=== PATIENT | female | born 1945 | race Caucasian/White ===

== ENCOUNTER 2019-08-10 11:49 | Outpatient (CLI) | payer MEDICARE, BC ==
--- NOTE | 2019-08-10 12:27 | RAD ---
LUMBAR SPINE 2 OR 3 VIEWS: DATE: 08/10/2019. TIME: 12:00 AM. CLINICAL INDICATION: Lumbosacral radiculopathy. COMPARISON: Reference made to lumbar spine MRI 06/11/2019. FINDINGS: Height loss related to compression fractures of L1 and L5 are present, grossly stable with regard to degree of height loss with comparing to prior MRI. There is grade 2 spondylolisthesis at L5-S1, without significant translational motion by flexion/exte nsion positioning. Multilevel endplate degenerative change with sclerosis, osteophytosis and disc space narrowing present. There is multilevel facet osteoarthritis. Prominent atherosclerotic vascular calcification is seen at the abdominal aorta. IMPRESSION: 1. Redemonstration of compression fractures of L1 and L5. 2. Grade II spondylolisthesis at L5-S1, without discernible translational motion. Transcribed Date/Time: 08/10/2019 1:34 PM
== END 2019-08-10 11:50 | disposition home or self-care (01) ==
LOC: RAD 11:49
PROVIDERS: ATTEND Neurological Surgery
DX: M54.16 Radiculopathy, lumbar region (principal); M43.17 Spondylolisthesis, lumbosacral region; M48.56XA Collapsed vertebra, not elsewhere classified, lumbar region, initial encounter for fracture
CPT/HCPCS: 72100

== ENCOUNTER 2019-08-26 15:04 | Outpatient (CLI) | payer MEDICARE, BC ==
--- NOTE | 2019-08-26 16:34 | RAD ---
LUMBAR SPINE: 08/26/19 Three views. Lateral views were obtained in the neutral, flexion and extension. COMPARISON: Comparison made to lumbar films 08/10/19. Compression deformity at L1 is unchanged with anterior wedging and loss of anterior height of over 50 %. Mild compression at L5 with anterolisthesis at L5-S1 and loss of disc space is unchanged. Degenera tive spurring and facet hypertrophy again noted. Anterolisthesis at L5-S1 does not significantly santos ge with flexion or extension. IMPRESSION: Degenerative changes of the lumbar spine again noted, stable from 08/10/19. POS: [facility]
== END 2019-08-26 15:05 | disposition home or self-care (01) ==
LOC: TBSIIMAG 15:04
PROVIDERS: ATTEND Neurological Surgery
DX: M54.5 Low back pain (principal); M47.816 Spondylosis without myelopathy or radiculopathy, lumbar region
CPT/HCPCS: 72100

== ENCOUNTER 2019-10-01 05:37 | Inpatient (IN) | payer MEDICARE, BC ==
--- NOTE | 2019-09-29 18:28 | HP ---
HISTORY OF PRESENT ILLNESS: Ms. Grigsby is a 74-year-old female, who reports to our office for evaluation of low back and left leg pain. She has been seen in 2016 for similar symptoms. She states that the pain starts in her left low back, goes down the back of her leg to the top of her foot on the left side. She states that standing or walking, it is worse and with sitting, it is better. She states that she has gotten progressively worse over the last few months. There is a burning, aching pain, but no numbness or tingling. No right-sided symptoms. She states that injections with Dr. Roque had helped in the past, but they are no longer. Physical therapy has not been done recently. She had tramadol and Percocet along with some gabapentin for pain relief. REVIEW OF SYSTEMS: A 10-point review of systems is completed and is negative other than stated in the above HPI. MEDICAL HISTORY: Hypertension, dizziness, osteoarthritis, circulation problems, acid reflux, headaches, alcohol, arthritis, hyperlipidemia, and colitis. 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 FAMILY HISTORY: Father is , diagnosed with no past medical history. Mother is , diagnosed with diabetes. There is a family history of hypertension and diabetes. SOCIAL HISTORY: The patient is a former smoker. Uses alcohol on occasion. Denies any illicit drugs. Drinks 4 to 6 drinks daily. MEDICATIONS: 1. Iron. 2. Probiotics. 3. Vitamin D3. 4. Vitamin B12. 5. Budesonide. 6. Atorvastatin. ALLERGIES: NO KNOWN DRUG ALLERGIES. PHYSICAL EXAMINATION: CONSTITUTIONAL: Well appearing, well nourished, alert. RESPIRATIONS: Normal work of breathing on room air. NEUROLOGIC: Awake, alert, oriented x3. Speech spontaneous and fluent. Normal fund of knowledge. Cranial nerves grossly intact. EXTREMITIES: Lower extremities: 5/5 bilateral strength in hip flexion, knee flexion, knee extension, plantar flexion; 4/5 in dorsiflexion, EHL. L5 left-sided radiculopathy. Negative single leg raise bilaterally. Hip rotation normal bilaterally. Tender to palpate lumbar spine, left SI joint. Deep tendon reflexes diminished bilaterally. Negative Babinski. No clonus. Sensory; increase sensitivity top of left foot. Gait and station, sit to standing normal, use of rolling walker. IMAGING: MRI of lumbar spine, moderate to severe stenosis at L3-L4 and L4-L5, severe at L5-S1 with listhesis. ASSESSMENT AND PLAN: Lumbar spondylolisthesis, lumbar stenosis with neurogenic claudication, lumbar radiculopathy. Dr. Salazar has offered surgery, laminectomy and TLIF at L5-S1. The patient states that she understands the risks of surgery and is willing to proceed. Job ID: [id number]
[2019-09-30 13:10] VITALS: BMI 29.2
[2019-10-01] MEDS ORDERED: Thrombin 5000 UNITS/5 ML VIAL ONE (06:11)
[2019-10-01] MEDS ORDERED: Bupivacaine PF 0.5% 30 ML VIAL ONE (06:11)
[2019-10-01] MEDS ORDERED: Sodium Chloride 0.9% 30 ML ONE (06:11)
[2019-10-01] MEDS ORDERED: Fentanyl 250 MCG/5 ML VIAL ONE (06:32)
[2019-10-01] MEDS ORDERED: Midazolam HCl 2 mg/2 ml Vial ONE (06:33)
[2019-10-01] MEDS ORDERED: HYDROmorphone 2 MG/ML VIAL ONE (06:33)
[2019-10-01 06:45] LABS: #Eosinphils 0.1 thou/uL (0.0-0.7); #Lymphocytes 1.7 thou/uL (1.20-3.40); #Monocytes 0.7 thou/uL (0.11-0.59); #Neutrophils 8.2 thou/uL (1.40-6.50); %Basophils 0.3 % (0.0-1.0); %Eosinophils 0.6 % (0.0-10.0); %Lymphocytes 15.9 % (21.0-51.0); %Monocytes 6.4 % (0.0-10.0); %Neutrophils 76.9 % (42.0-75.0); Hemoglobin 12.4 g/dL (12.0-16.0); Mean Corpuscular HGB CONC 33.4 g/dL (32.0-36.0); Mean Corpuscular Hemoglobin 29.9 pg (27.0-31.0); Mean Corpuscular Volume 89.7 fL (78.0-98.0); Mean Platelet Volume 6.9 fL (7.4-10.4); Platelet Count 326 thou/uL (130-400); RBC Distribution Width 12.2 % (11.5-14.5); Red Blood Cell (RBC) Count 4.15 mill/uL (4.20-5.40); White Blood Cell (WBC) Count 10.7 thou/uL (4.8-10.8)
[2019-10-01 06:52] LABS: PTT 31.6 SEC (22.9-36.1); Prothrombin Time 12.7 SEC (12.0-14.7)
[2019-10-01] MEDS ORDERED: Ropivacaine 0.2% HCl/PF (40 MG/20 ML VIAL) ONE (10:29)
[2019-10-01] MEDS ORDERED: Dexamethasone 20 MG/5 ML VIAL ONE (10:29)
[2019-10-01] MEDS ORDERED: Ropivacaine 0.5% HCl/PF (150 MG/30 ML VIAL) ONE (10:29)
[2019-10-01] MEDS ORDERED: PHENYLEPHRINE-NS 100 MCG/ML 10 ML SYRINGE ONE (10:29)
[2019-10-01] MEDS ORDERED: PROPOFOL 200 MG/20 ML VIAL ONE (10:29)
[2019-10-01] MEDS ORDERED: Rocuronium Bromide 10 MG/ML (10ML VIAL) ONE (10:29)
[2019-10-01] MEDS ORDERED: Labetalol HCl 100 MG/20 ML VIAL ONE (10:29)
[2019-10-01] MEDS ORDERED: Glycopyrrolate 0.2 MG/ML 5 ML SYRINGE ONE (10:29)
[2019-10-01] MEDS ORDERED: SUGAMMADEX SODIUM 200 MG/2 ML VIAL ONE (13:06)
[2019-10-01] MEDS ORDERED: diphenhydrAMINE 25 MG CAP PO PRN (13:09)
[2019-10-01] MEDS ORDERED: Acetaminophen 325 MG TAB PO PRN (13:09)
[2019-10-01] MEDS ORDERED: Morphine 2 MG/ML SYRINGE SLOW IVP PRN (13:09)
[2019-10-01] MEDS ORDERED: Mag-Al 1200 mg/1200 mg/30 ML UDCUP PO PRN (13:09)
[2019-10-01] MEDS ORDERED: diphenhydrAMINE 50 MG/ML VIAL IVP PRN (13:09)
[2019-10-01] MEDS ORDERED: Promethazine HCl 25 MG/ML VIAL IM PRN (13:09)
[2019-10-01] MEDS ORDERED: Acetaminophen/Codeine 30-300mg Tablet PO PRN (13:09)
[2019-10-01] MEDS ORDERED: Promethazine 25 MG TAB PO PRN (13:09)
[2019-10-01] MEDS ORDERED: Ondansetron PF 4 MG/2 ML Vial IVP PRN (13:09)
[2019-10-01] MEDS ORDERED: traMADol HCl 50 MG TAB PO PRN (13:12)
[2019-10-01] MEDS ORDERED: HYDROmorphone 0.5 MG/0.5 ML SYRINGE ONE (13:29)
[2019-10-01] MEDS ORDERED: Fentanyl 100 MCG/2 ML VIAL ONE (13:29)
--- NOTE | 2019-10-01 14:21 | OP ---
DATE OF PROCEDURE: 10/01/2019 PIT FURNACE OPERATOR: Melina Lord PA-C. PREOPERATIVE INDICATION: Treat pain and prevent neurological deterioration. PREOPERATIVE DIAGNOSES: Grade 2 spondylolisthesis at L5-S1 with severe canal and foraminal stenosis, lumbar spinal stenosis at L4-5 and L3-4 with neurogenic claudication. POSTOPERATIVE DIAGNOSES: Grade 2 spondylolisthesis at L5-S1 with severe canal and foraminal stenosis, lumbar spinal stenosis at L4-5 and L3-4 with neurogenic claudication. OPERATIVE PROCEDURE: 1. Decompressive laminectomy, medial facetectomy and foraminotomy, L3-4, L4-5, L5-S1. 2. Transforaminal lumbar interbody arthrodesis at L5-S1 and L4-L5. 3. Pedicle screw and henrik instrumentation, L4-5 and L5-S1. 4. Posterolateral arthrodesis, L4-5, L5-S1. 5. Local morselized autograft, morselized allograft. PREOPERATIVE MEDICATIONS: Ancef 2 g IV. DRAIN NUMBER: One. DRAIN TYPE: 10-[place] Christian. DESCRIPTION OF PROCEDURE: The patient was brought to the operating room. General endotracheal anesthesia was induced. The patient was positioned prone on the Glynn frame with the appropriate padding for the chest and hips. A lateral fluoro radiograph was used to plan our incision. The lumbar skin was sterilely prepped and draped. We opened a midline incision with a 10-blade knife. We controlled bleeding with bipolar and monopolar cautery. We used monopolar cautery to dissect through subcutaneous tissues to the thoracodorsal fascia. We incised the fascia in the midline and reflected the paraspinal muscles off the spinous process and laminae of L3, L4, L5, and S1. Self-retaining retractors were placed and a lateral fluoro radiograph confirmed the levels upon which we were operating. We then removed the spinous processes of L3, L4, L5 and the superior portion of the sacrum. With Kerrison rongeur, we fashioned a laminectomy down the midline. We widened our laminectomy defect by performing medial facetectomies until we were around the lateral aspect of the dura and in line with the medial aspect of the pedicle. We performed wide foraminotomies. At the L5-S1 interspace, L5 nerve roots were compressed between the pedicle of L5 and the superior portion of the sacral bone itself. We then turned our attention to arthrodesis. Because of the steep slope with a grade 2 slip, it would be difficult to stabilize with pedicle screws across the lumbosacral interspace only and we had talked to the patient about this before surgery. We took our arthrodesis up to L4 which was tim because it offered us some amount of reduction. To do so, we took out the disks at L4-L5 and L5-S1 by performing complete facetectomies, using this trajectory and removing all the disk material. We then prepared the endplates for grafting with curettes. We measured the height of the interspace to 8 mm at L5-S1 and 9 mm at L4-L5. The appropriately-sized PEEK intervertebral grafts were brought into the field. The laminectomy bone was carefully morselized on the back table after soft tissue was removed. The morselized bone was added to demineralized bone matrix to form a fusion substrate. We packed the fusion substrate into the center of the PEEK devices and these were advanced into the interspaces under radiographic guidance to the appropriate depth. We turned our attention to pedicle screw instrumentation. Using bony anatomic landmarks, palpation of the medial portion of the pedicles and lateral fluoro radiograph as our guide, we chose entry points for pedicle screws at L4, L5, and S1 bilaterally. We drilled out our entry points. We used a bone awl to advance the trajectories through the pedicles into the vertebral body and then we tapped each trajectory with a threaded tap. We placed 6.5 mm diameter screws. A 360-degree image set was generated confirming adequate positioning of our pedicle screw instrumentation. We then brought the rods down into the screw heads. The rods had to be contoured specifically for the spondylolisthesis. We tightened caps over the rods and using a torque/counter-torque mechanism, we ensured adequate tightness. We applied gentle compression across the interspace. Tightening the L5 caps to the rods allowed some reduction of the spondylolisthesis and improved alignment significantly. The L5 nerve roots looked well decompressed due to the interbodies and the pedicle screw instrumentation. We irrigated copiously with bacitracin irrigation. We decorticated the transverse processes of L4, L5 and the sacral ala bilaterally. Over all the decorticated bone, we left demineralized bone matrix and morselized autograft as our posterolateral fusion substrate. We then tunneled the drain inferiorly through a separate stab incision. We irrigated the center of the wound. We treated the wound with vancomycin powder and we closed in anatomic layers over the drain. This was a clean case, no contamination. Job ID: [id number]
[2019-10-01] MEDS ORDERED: CEFAZOLIN 2 GM in Premix Bag 1 BAG IVPB SCH (15:00)
[2019-10-01] MEDS: Sodium Chloride 0.9% 1,000 ML IV SCH (19:30)
[2019-10-01] MEDS: CEFAZOLIN 2 GM in Premix Bag 1 BAG IVPB SCH (20:11)
[2019-10-01] MEDS: tiZANidine HCl 4 MG TAB PO PRN (20:15)
[2019-10-01] MEDS: Atorvastatin Calcium 40 MG TAB PO SCH (20:16)
[2019-10-02] MEDS: Acetaminophen/Codeine 30-300mg Tablet PO PRN ×4 (02:32→19:49)
[2019-10-02] MEDS: Morphine 4 MG/ML VIAL SLOW IVP PRN (02:53)
[2019-10-02] MEDS: Sodium Chloride 0.9% 1,000 ML IV SCH ×2 (02:54→14:50)
[2019-10-02] MEDS: CEFAZOLIN 2 GM in Premix Bag 1 BAG IVPB SCH ×3 (04:48→19:48)
[2019-10-02] MEDS: traMADol HCl 50 MG TAB PO PRN (04:51)
--- NOTE | 2019-10-02 08:02 | PRG ---
DATE OF SERVICE: 10/02/2019 Ms. Grigsby is one day out from decompression and fusion of lumbar spine for lumbar stenosis, neurogenic claudication, and spondylolisthesis. Her radicular pain in her legs is much better. The back is very sore. Her vitals have been stable and her drain output is higher than her threshold for removal. There are no new neurological deficits in the lower extremities. Our plan on Ms. Grigsby is to work with physical therapy and begin mobilization. When her drain tapers off, it will be removed. We will continue her antibiotics until the drain is out. We will look for inpatient rehabilitation as the next step in her care. If she is surprisingly nimble and safe for activities of daily living by tomorrow or Friday, she can possibly go home, but I anticipate a discharge to rehab. Job ID: [id number] MTDD
[2019-10-02] MEDS: Losartan 25 MG TAB PO SCH (08:35)
[2019-10-02] MEDS: Amlodipine 5 MG TAB PO SCH (08:35)
[2019-10-02] MEDS: Potassium Chloride 20 MEQ TAB PO SCH (08:36)
[2019-10-02] MEDS ORDERED: Losartan 25 MG TAB PO SCH (09:00)
[2019-10-02] MEDS: tiZANidine HCl 4 MG TAB PO PRN ×2 (11:00→16:59)
[2019-10-02] MEDS: Atorvastatin Calcium 40 MG TAB PO SCH (19:48)
[2019-10-03] MEDS: Acetaminophen/Codeine 30-300mg Tablet PO PRN ×4 (00:42→20:13)
[2019-10-03] MEDS: Morphine 4 MG/ML VIAL SLOW IVP PRN (00:52)
[2019-10-03] MEDS: Milk Of Magnesia 30 ML UDCUP PO PRN (01:01)
[2019-10-03] MEDS: CEFAZOLIN 2 GM in Premix Bag 1 BAG IVPB SCH ×3 (04:15→20:13)
[2019-10-03] MEDS: Sodium Chloride 0.9% 1,000 ML IV SCH ×2 (06:07→16:46)
--- NOTE | 2019-10-03 08:20 | PRG ---
DATE OF SERVICE: 10/03/2019 Ms. Grigsby is 2 days out from decompression and fusion of lumbar spine. She is able ambulate to the ayala yesterday. She made it to the doorway, looking out at the nursing station and back to her room. She ambulated to the chair and sat up in her chair for some time. Her drain continues to put out drainage above our threshold for removal. There were 90 mL out in the last 10 hours. Complains of some constipation and bloating. She would like us to prescribe MiraLAX. I do not see any fevers recorded and vital signs look stable to me. Her neurological examination is good. We are going to assist her with bowel movement today. We will leave the drain in until it tapers off the lower threshold for removal. We will continue antibiotics at least until the drain is out and then give one more dose after its removal. Job ID: [id number] MTDD
[2019-10-03] MEDS: traMADol HCl 50 MG TAB PO PRN ×2 (09:00→17:08)
[2019-10-03] MEDS: Losartan 25 MG TAB PO SCH (09:01)
[2019-10-03] MEDS: Amlodipine 5 MG TAB PO SCH (09:01)
[2019-10-03] MEDS: Tamsulosin HCl 0.4 MG CAP PO SCH (09:02)
[2019-10-03] MEDS: Potassium Chloride 20 MEQ TAB PO SCH (09:02)
[2019-10-03] MEDS: tiZANidine HCl 4 MG TAB PO PRN ×2 (11:50→21:27)
[2019-10-03] MEDS ORDERED: Polyethylene Glycol 3350 17 GM Packet PO SCH (14:00)
--- NOTE | 2019-10-03 14:25 | EKG ---
Test Reason : PREOP Blood Pressure : / mmHG Vent. Rate : 071 BPM Atrial Rate : 071 BPM P-R Int : 214 ms QRS Dur : 084 ms QT Int : 384 ms P-R-T Axes : 053 003 056 degrees QTc Int : 417 ms Sinus rhythm with 1st degree A-V block Otherwise normal ECG When compared with ECG of 06-AUG-2015 20:05, Criteria for Septal infarct are no longer Present Confirmed by EILEEN VALLES (2) on 10/03/2019 2:25:03 PM Referred By: WAYLON Confirmed By:EILEEN VALLES
[2019-10-03] MEDS: Atorvastatin Calcium 40 MG TAB PO SCH (20:13)
[2019-10-04] MEDS: Acetaminophen/Codeine 30-300mg Tablet PO PRN ×4 (03:27→16:16)
[2019-10-04] MEDS: CEFAZOLIN 2 GM in Premix Bag 1 BAG IVPB SCH ×3 (03:28→20:19)
[2019-10-04] MEDS ORDERED: Bisacodyl 10 MG SUPP PR SCH (05:15)
--- NOTE | 2019-10-04 05:33 | PRG ---
DATE OF SERVICE: Ms. Grigsby is 3 days out from decompression and fusion of lumbar spine. She is doing well. She is getting in and out of bed and using her walker. She made it to the hallway. She notices that she has not had a bowel movement and wants to work on that. Otherwise, she seems to be improving daily. Ms. Grigsby has no fevers recorded on our vital sign chart and her blood pressures have been fairly stable. I do not find any new neurological deficit. Ms. Grigsby will be good candidate for inpatient rehabilitation. We will try to make arrangements for that to happen as soon as possible. Job ID: [id number] MTDD
[2019-10-04] MEDS: traMADol HCl 50 MG TAB PO PRN ×2 (06:25→20:54)
[2019-10-04] MEDS: tiZANidine HCl 4 MG TAB PO PRN ×2 (06:25→16:24)
[2019-10-04] MEDS: Milk Of Magnesia 30 ML UDCUP PO PRN (06:33)
[2019-10-04] MEDS: Sodium Chloride 0.9% 1,000 ML IV SCH ×2 (06:57→22:43)
[2019-10-04] MEDS: Potassium Chloride 20 MEQ TAB PO SCH (09:18)
[2019-10-04] MEDS: Tamsulosin HCl 0.4 MG CAP PO SCH (09:19)
[2019-10-04] MEDS: Losartan 25 MG TAB PO SCH (09:19)
[2019-10-04] MEDS: Amlodipine 5 MG TAB PO SCH (09:19)
[2019-10-04] MEDS: Polyethylene Glycol 3350 17 GM Packet PO SCH (09:20)
[2019-10-04] MEDS: Atorvastatin Calcium 40 MG TAB PO SCH (20:19)
[2019-10-05] MEDS: Acetaminophen/Codeine 30-300mg Tablet PO PRN ×6 (00:51→20:56)
[2019-10-05] MEDS: CEFAZOLIN 2 GM in Premix Bag 1 BAG IVPB SCH ×3 (04:09→20:56)
[2019-10-05] MEDS: traMADol HCl 50 MG TAB PO PRN (04:09)
[2019-10-05] MEDS: Tamsulosin HCl 0.4 MG CAP PO SCH (08:40)
[2019-10-05] MEDS: Losartan 25 MG TAB PO SCH (08:40)
[2019-10-05] MEDS: Amlodipine 5 MG TAB PO SCH (08:40)
[2019-10-05] MEDS: Potassium Chloride 20 MEQ TAB PO SCH (08:40)
[2019-10-05] MEDS: Polyethylene Glycol 3350 17 GM Packet PO SCH (08:45)
--- NOTE | 2019-10-05 09:05 | PRG ---
DATE OF SERVICE: 10/05/2019 I saw Ms. Grigsby in her hospital room this morning. Her drain remains in place. She complains of some urinary retention and constipation. Suppositories yesterday seemed to help. Vitals have been stable. the neurological exam is quite good. Ms. Grigsby is a good candidate for inpatient rehabilitation. We need to get the drain out. She would like to have a better bladder function before she goes, but I reassured her that the inpatient rehabilitation facility deals with bladder issues frequently and they want to leave indwelling catheter-induced therapy or allow her to void on her own and use straight catheter for any residual, then I will defer to their expertise. If they like us to get Urology consultation here in the hospital before discharge to make recommendations for rehab, then we can do so. Job ID: [id number] MTDD
[2019-10-05] MEDS: Sodium Chloride 0.9% 1,000 ML IV SCH (11:59)
[2019-10-05] MEDS: Atorvastatin Calcium 40 MG TAB PO SCH (20:56)
[2019-10-06] MEDS: Sodium Chloride 0.9% 1,000 ML IV SCH (02:08)
[2019-10-06] MEDS: Acetaminophen/Codeine 30-300mg Tablet PO PRN ×4 (03:27→13:17)
[2019-10-06] MEDS: CEFAZOLIN 2 GM in Premix Bag 1 BAG IVPB SCH (03:39)
[2019-10-06] MEDS: Losartan 25 MG TAB PO SCH (07:45)
[2019-10-06] MEDS: Potassium Chloride 20 MEQ TAB PO SCH (07:45)
[2019-10-06] MEDS: Tamsulosin HCl 0.4 MG CAP PO SCH (07:45)
[2019-10-06] MEDS: Amlodipine 5 MG TAB PO SCH (07:46)
[2019-10-06] MEDS: Polyethylene Glycol 3350 17 GM Packet PO SCH (07:47)
--- NOTE | 2019-10-06 08:56 | PRG ---
DATE OF SERVICE: 10/06/2019 SUBJECTIVE: The patient is a 74-year-old female, who is status post laminectomy and TLIF by Dr. Salazar. Since her surgery, she has been monitored on the Med/Surg floor, where her pain has been well-controlled with p.o. medications, she is tolerating regular diet. She has since had some issues with intermittent urinary retention and constipation. However, this has improved over the last 24 hours. She has not required straight cath overnight. Her PALMA output has also trended downward and was removed last night. The plan is for inpatient rehabilitation and I anticipate that they have indicated that they are ready for her at any point in time. OBJECTIVE: NEUROLOGIC: On exam this morning, the patient is awake, alert, in no acute distress. She has free active range of motion of all extremities. No focal motor weakness. Incision is clean, dry, and intact. ASSESSMENT AND PLAN: We will plan to dismiss the patient to inpatient rehab later today after discussed home care and precautions. The patient to follow up with Dr. Salazar in 2 weeks. Job ID: [id number]
[2019-10-06 11:26] VITALS: BP 123/74; TEMP 98.3
== END 2019-10-06 15:44 | DRG 455 ==
LOC: SURG A 05:37 → SURG B 17:19
PROVIDERS: ADMIT Neurological Surgery; ATTEND Neurological Surgery
PROC: 0SG00AJ Fusion of Lumbar Vertebral Joint with Interbody Fusion Device, Posterior Approach, Anterior Column, Open Approach (ICD-10-PCS; principal; 2019-10-01)
PROC: 0SG0071 Fusion of Lumbar Vertebral Joint with Autologous Tissue Substitute, Posterior Approach, Posterior Column, Open Approach (ICD-10-PCS; 2019-10-01)
PROC: 0SG30AJ Fusion of Lumbosacral Joint with Interbody Fusion Device, Posterior Approach, Anterior Column, Open Approach (ICD-10-PCS; 2019-10-01)
PROC: 0SG3071 Fusion of Lumbosacral Joint with Autologous Tissue Substitute, Posterior Approach, Posterior Column, Open Approach (ICD-10-PCS; 2019-10-01)
PROC: 0SB20ZZ Excision of Lumbar Vertebral Disc, Open Approach (ICD-10-PCS; 2019-10-01)
PROC: 0SB40ZZ Excision of Lumbosacral Disc, Open Approach (ICD-10-PCS; 2019-10-01)
PROC: 01NB0ZZ Release Lumbar Nerve, Open Approach (ICD-10-PCS; 2019-10-01)
PROC: 01NR0ZZ Release Sacral Nerve, Open Approach (ICD-10-PCS; 2019-10-01)
DX: M48.062 Spinal stenosis, lumbar region with neurogenic claudication (principal); M43.16 Spondylolisthesis, lumbar region; M43.17 Spondylolisthesis, lumbosacral region; R33.9 Retention of urine, unspecified; K59.00 Constipation, unspecified; I10 Essential (primary) hypertension; E78.5 Hyperlipidemia, unspecified; K21.9 Gastro-esophageal reflux disease without esophagitis; Z96.652 Presence of left artificial knee joint; M54.16 Radiculopathy, lumbar region; M54.17 Radiculopathy, lumbosacral region; Z87.891 Personal history of nicotine dependence; Z79.899 Other long term (current) drug therapy
CPT/HCPCS: 36415; 76000; 85025; 85610; 85730; 93005; 93010; C1713; C1768; J0131; J0690; J1100; J1170; J2250; J2270; J2405; J2704; J2795; J3010; J3370; J3490; S0020

== ENCOUNTER 2022-05-23 23:15 | Emergency (ER) | payer MEDICARE, BC ==
[2022-05-24 00:13] LABS: #Eosinphils 0.1 thou/uL (0.0-0.7); #Lymphocytes 0.7 thou/uL (1.20-3.40); #Monocytes 1.5 thou/uL (0.11-0.59); #Neutrophils 12.3 thou/uL (1.40-6.50); %Eosinophils 0.4 % (0.0-10.0); %Monocytes 10.2 % (0.0-10.0); %Neutrophils 84.4 % (42.0-75.0); Hemoglobin 12.3 g/dL (12.0-16.0); Mean Corpuscular HGB CONC 33.2 g/dL (32.0-36.0); Mean Corpuscular Hemoglobin 29.6 pg (27.0-31.0); Mean Corpuscular Volume 89.3 fL (78.0-98.0); Platelet Count 309 thou/uL (130-400); RBC Distribution Width 14.4 % (11.5-14.5); Red Blood Cell (RBC) Count 4.15 mill/uL (4.20-5.40); White Blood Cell (WBC) Count 14.6 thou/uL (4.8-10.8)
[2022-05-24 00:33] LABS: ALT (SGPT) 15 U/L (8-55); AST (SGOT) 14 U/L (5-34); Albumin 3.8 g/dL (3.4-4.8); Alkaline Phosphatase 67 U/L (40-110); Anion Gap 17 mmol/L (10-20); BUN (Urea Nitrogen) 23 mg/dL (9.8-20.1); Bilirubin, Total 0.4 mg/dL (0.2-1.2); Calc. Creatinine Clearance 0 mL/min (70-130); Calcium 9.2 mg/dL (7.8-10.44); Carbon Dioxide 19 mmol/L (23-31); Chloride 94 mmol/L (98-107); Estimated GFR 61; Globulin 2.7 g/dL (2.4-3.5); Glucose 101 mg/dL (83-110); Potassium 4.7 mmol/L (3.5-5.1); Protein, Total 6.5 g/dL (5.8-8.1); Sodium 125 mmol/L (136-145)
== END 2022-05-24 04:02 | disposition short-term general hospital (02) ==
LOC: ERS 23:15
DX: R00.0 Tachycardia, unspecified (principal); E87.1 Hypo-osmolality and hyponatremia; K21.9 Gastro-esophageal reflux disease without esophagitis; E78.5 Hyperlipidemia, unspecified; I10 Essential (primary) hypertension; Z79.899 Other long term (current) drug therapy; W19.XXXA Unspecified fall, initial encounter
CPT/HCPCS: 36415; 70450; 71045; 72192; 80053; 84443; 85025; 93005

== ENCOUNTER 2022-07-22 14:13 | Inpatient (IN) | payer MEDICARE, BC ==
[~2022-07-22 14:13] MED LIST: Iopamidol-370 76% 500 ML 1 ML ONE
[2022-07-22 15:04] LABS: #Eosinphils 0.2 thou/uL (0.0-0.7); #Lymphocytes 0.7 thou/uL (1.20-3.40); #Monocytes 0.4 thou/uL (0.11-0.59); #Neutrophils 6.7 thou/uL (1.40-6.50); %Basophils 0.1 % (0.0-1.0); %Lymphocytes 9.2 % (21.0-51.0); %Monocytes 4.4 % (0.0-10.0); %Neutrophils 84.2 % (42.0-75.0); Hemoglobin 8.8 g/dL (12.0-16.0); Mean Corpuscular HGB CONC 33.1 g/dL (32.0-36.0); Mean Corpuscular Hemoglobin 30.6 pg (27.0-31.0); Mean Corpuscular Volume 92.4 fL (78.0-98.0); Mean Platelet Volume 7.1 fL (7.4-10.4); Platelet Count 271 thou/uL (130-400); RBC Distribution Width 14.8 % (11.5-14.5); Red Blood Cell (RBC) Count 2.88 mill/uL (4.20-5.40); White Blood Cell (WBC) Count 7.9 thou/uL (4.8-10.8)
[2022-07-22 15:19] LABS: ALT (SGPT) 14 U/L (8-55); AST (SGOT) 15 U/L (5-34); Albumin 3.5 g/dL (3.4-4.8); Alkaline Phosphatase 69 U/L (40-110); Anion Gap 13 mmol/L (10-20); BUN (Urea Nitrogen) 20 mg/dL (9.8-20.1); Bilirubin, Total 0.2 mg/dL (0.2-1.2); Calc. Creatinine Clearance 0 mL/min (70-130); Carbon Dioxide 20 mmol/L (23-31); Chloride 102 mmol/L (98-107); Estimated GFR 44; Globulin 2.5 g/dL (2.4-3.5); Glucose 113 mg/dL (83-110); Potassium 4.3 mmol/L (3.5-5.1); Sodium 131 mmol/L (136-145)
[2022-07-22] MEDS ORDERED: Aspirin Chewable 81 MG TAB ONE (17:59)
[2022-07-22] MEDS ORDERED: Furosemide 40 MG/4 ML VIAL ONE (17:59)
[2022-07-22 19:31] LABS: Troponin I Less than 0.010 ng/mL (< 0.028)
[2022-07-22] MEDS ORDERED: Ondansetron PF 4 MG/2 ML Vial IVP PRN (20:00)
[2022-07-22] MEDS ORDERED: Ondansetron ODT 4 MG TAB SL PRN (20:00)
[2022-07-22] MEDS ORDERED: Acetaminophen 325 MG TAB PO PRN (20:00)
[2022-07-22 20:33] VITALS: BMI 36.1
[2022-07-22] MEDS ORDERED: Acetaminophen 650 MG Suppository PR PRN (20:54)
[2022-07-22 21:55] LABS: Troponin I Less than 0.010 ng/mL (< 0.028)
[2022-07-23] MEDS ORDERED: Pantoprazole 40 MG VIAL IVP SCH ×2 (02:35→21:00)
[2022-07-23 04:53] LABS: #Lymphocytes 1.4 thou/uL (1.20-3.40); #Monocytes 0.5 thou/uL (0.11-0.59); #Neutrophils 6.2 thou/uL (1.40-6.50); %Basophils 0.4 % (0.0-1.0); %Eosinophils 0.1 % (0.0-10.0); %Lymphocytes 16.7 % (21.0-51.0); %Monocytes 6.1 % (0.0-10.0); %Neutrophils 76.8 % (42.0-75.0); Mean Corpuscular HGB CONC 32.8 g/dL (32.0-36.0); Mean Corpuscular Hemoglobin 29.9 pg (27.0-31.0); Mean Corpuscular Volume 91.2 fL (78.0-98.0); Platelet Count 286 thou/uL (130-400); RBC Distribution Width 14.6 % (11.5-14.5); Red Blood Cell (RBC) Count 2.99 mill/uL (4.20-5.40); White Blood Cell (WBC) Count 8.1 thou/uL (4.8-10.8)
[2022-07-23 05:17] LABS: Anion Gap 16 mmol/L (10-20); BUN (Urea Nitrogen) 23 mg/dL (9.8-20.1); Calc. Creatinine Clearance 37 mL/min (70-130); Calcium 9.3 mg/dL (7.8-10.44); Carbon Dioxide 22 mmol/L (23-31); Chloride 100 mmol/L (98-107); Estimated GFR 34; Glucose 85 mg/dL (83-110); Iron 14 ug/dL (50-170); Iron 15 ug/dL (50-170); Iron Binding Capacity, Total 334 mcg/dL (265-497); Iron Binding Capacity, Total 336 mcg/dL (265-497); Magnesium 1.6 mg/dL (1.6-2.6); Potassium 4.3 mmol/L (3.5-5.1); Sodium 134 mmol/L (136-145)
[2022-07-23] MEDS ORDERED: Enoxaparin Sodium 40 MG/0.4 ML SYRINGE SC SCH (09:00)
[2022-07-23] MEDS ORDERED: methylPREDNISolone Sod Succ 40 MG VIAL IVP SCH (12:45)
[2022-07-23] MEDS ORDERED: Magnesium 2 GM/50 ML(in water) 2 GM in Premix Bag 1 BAG IVPB SCH (12:45)
[2022-07-23] MEDS ORDERED: Furosemide 20 MG/2 ML VIAL SLOW IVP SCH (12:45)
[2022-07-24 01:33] LABS: SARS-CoV-2 NAA Rapid Test Not Detected (NotDetected)
[2022-07-24 04:58] LABS: #Lymphocytes 0.7 thou/uL (1.20-3.40); #Monocytes 0.2 thou/uL (0.11-0.59); #Neutrophils 7.3 thou/uL (1.40-6.50); %Basophils 0.1 % (0.0-1.0); %Lymphocytes 8.5 % (21.0-51.0); %Monocytes 2.1 % (0.0-10.0); %Neutrophils 89.3 % (42.0-75.0); Hemoglobin 8.8 g/dL (12.0-16.0); Mean Corpuscular Hemoglobin 30.3 pg (27.0-31.0); Mean Corpuscular Volume 91.7 fL (78.0-98.0); Mean Platelet Volume 7.4 fL (7.4-10.4); Platelet Count 312 thou/uL (130-400); RBC Distribution Width 14.4 % (11.5-14.5); White Blood Cell (WBC) Count 8.1 thou/uL (4.8-10.8)
[2022-07-24 05:21] LABS: Anion Gap 13 mmol/L (10-20); BUN (Urea Nitrogen) 37 mg/dL (9.8-20.1); Calc. Creatinine Clearance 39 mL/min (70-130); Calcium 10.1 mg/dL (7.8-10.44); Carbon Dioxide 24 mmol/L (23-31); Chloride 96 mmol/L (98-107); Estimated GFR 36; Glucose 158 mg/dL (83-110); Potassium 4.3 mmol/L (3.5-5.1); Sodium 129 mmol/L (136-145)
[2022-07-24] MEDS ORDERED: Ketamine 50 MG/ML (10ML VIAL) ONE (09:57)
[2022-07-24] MEDS ORDERED: PROPOFOL 200 MG/20 ML VIAL ONE (10:32)
[2022-07-24] MEDS ORDERED: Ondansetron HCl/PF 4 MG/2 ML Vial IVP PRN (10:53)
[2022-07-24] MEDS: ALPRAZolam 0.25 MG TAB PO SCH ×2 (12:01→21:37)
[2022-07-24] MEDS: Pantoprazole 40 MG VIAL IVP SCH (21:45)
[2022-07-24] MEDS: methylPREDNISolone Sod Succ/PF 125 MG/2 ML VIAL IVP SCH (21:45)
[2022-07-25] MEDS ORDERED: Docusate 100 MG CAP PO PRN (04:10)
[2022-07-25 04:40] LABS: Hemoglobin 9.1 g/dL (12.0-16.0)
[2022-07-25 07:27] LABS: Hemoglobin 9.1 g/dL (12.0-16.0); Mean Corpuscular HGB CONC 31.8 g/dL (32.0-36.0); Mean Corpuscular Hemoglobin 29.2 pg (27.0-31.0); Mean Corpuscular Volume 91.8 fL (78.0-98.0); Platelet Count 331 thou/uL (130-400); RBC Distribution Width 14.2 % (11.5-14.5); Red Blood Cell (RBC) Count 3.11 mill/uL (4.20-5.40); White Blood Cell (WBC) Count 10.4 thou/uL (4.8-10.8)
[2022-07-25 07:54] LABS: Band 5 % (5-11); Burr Cells SLIGHT = 2-5 cells (100X) (0-1/hpf); Lymphocytes 8 % (21-51); MDiff Complete? YES; Neutrophil 87 % (42-75); Platelet Morphology Comment Appears Adequate; Polychromasia SLIGHT = 2-3 cells (100X) (0-2/hpf)
[2022-07-25 07:59] LABS: Anion Gap 16 mmol/L (10-20); BUN (Urea Nitrogen) 40 mg/dL (9.8-20.1); Calc. Creatinine Clearance 37 mL/min (70-130); Calcium 9.5 mg/dL (7.8-10.44); Carbon Dioxide 20 mmol/L (23-31); Chloride 99 mmol/L (98-107); Estimated GFR 35; Glucose 163 mg/dL (83-110); Potassium 4.6 mmol/L (3.5-5.1); Sodium 130 mmol/L (136-145)
[2022-07-25] MEDS: Benzonatate 100 MG CAP PO PRN ×2 (08:47→21:33)
[2022-07-25] MEDS: Ferrous Sulfate 325 MG TAB PO SCH (08:49)
[2022-07-25] MEDS: Pantoprazole 40 MG VIAL IVP SCH ×2 (08:50→21:33)
[2022-07-25] MEDS: Atorvastatin Calcium 20 MG TAB PO SCH (08:50)
[2022-07-25] MEDS: methylPREDNISolone Sod Succ/PF 125 MG/2 ML VIAL IVP SCH (08:51)
[2022-07-25] MEDS: ALPRAZolam 0.25 MG TAB PO SCH ×2 (08:53→21:33)
[2022-07-25 10:38] LABS: Creatinine, Urine 87.59 mg/dL (47-110)
[2022-07-26 04:28] LABS: #Monocytes 1.2 thou/uL (0.11-0.59); #Neutrophils 16.6 thou/uL (1.40-6.50); %Basophils 0.1 % (0.0-1.0); %Lymphocytes 5.5 % (21.0-51.0); %Monocytes 6.1 % (0.0-10.0); %Neutrophils 88.2 % (42.0-75.0); Hemoglobin 8.6 g/dL (12.0-16.0); Mean Corpuscular Hemoglobin 30.1 pg (27.0-31.0); Mean Corpuscular Volume 91.2 fL (78.0-98.0); Platelet Count 325 thou/uL (130-400); RBC Distribution Width 14.1 % (11.5-14.5); Red Blood Cell (RBC) Count 2.85 mill/uL (4.20-5.40); White Blood Cell (WBC) Count 18.8 thou/uL (4.8-10.8)
[2022-07-26 04:39] LABS: Anion Gap 16 mmol/L (10-20); BUN (Urea Nitrogen) 53 mg/dL (9.8-20.1); Calc. Creatinine Clearance 29 mL/min (70-130); Calcium 8.8 mg/dL (7.8-10.44); Carbon Dioxide 19 mmol/L (23-31); Chloride 94 mmol/L (98-107); Estimated GFR 26; Glucose 143 mg/dL (83-110); Magnesium 1.6 mg/dL (1.6-2.6); Potassium 3.9 mmol/L (3.5-5.1); Sodium 125 mmol/L (136-145)
[2022-07-26] MEDS ORDERED: Sodium Chloride 0.9% 1,000 ML IV SCH (06:45)
[2022-07-26 07:43] LABS: Actual Bicarbonate (HCO3v) 23 mEq/L (22-28); Base Excess -0.8 mEq/L (-2.0 to +3.0); Calcium, Ionized (venous) 1.13 mmol/L (1.16-1.32); Chloride (VBG) 94 mmol/L (98-106); Hemoglobin (Hb) 9.3 g/dL (11.7-16.1); Potassium (VBG) 4.14 mmol/L (3.70-5.30); pH (venous) 7.46 (7.32-7.43)
[2022-07-26] MEDS ORDERED: predniSONE 50 MG TAB PO SCH (08:00)
[2022-07-26] MEDS ORDERED: Mometasone 200 MCG/Formoterol 5 MCG 120 PUFF INHALER INH SCH (08:00)
[2022-07-26] MEDS ORDERED: Magnesium Sulfate In Water 4 GM in Premix Bag 1 BAG IVPB SCH (08:15)
[2022-07-26 08:16] LABS: Troponin I 0.012 ng/mL (< 0.028)
[2022-07-26] MEDS: Sodium Chloride 0.9% 1,000 ML IV SCH (08:58)
[2022-07-26] MEDS: Ferrous Sulfate 325 MG TAB PO SCH (08:59)
[2022-07-26] MEDS: Atorvastatin Calcium 20 MG TAB PO SCH (08:59)
[2022-07-26] MEDS: Pantoprazole 40 MG VIAL IVP SCH ×2 (09:00→20:34)
[2022-07-26] MEDS: methylPREDNISolone Sod Succ 40 MG VIAL IVP SCH ×2 (09:02→20:34)
[2022-07-26] MEDS: ALPRAZolam 0.25 MG TAB PO SCH ×2 (09:25→20:34)
[2022-07-26 12:57] LABS: Creatinine, Urine 79.39 mg/dL (47-110); Sodium, Urine Less than 20 mmol/L (Not Available); Urea Nitrogen, Random Urine 631 mg/dl
[2022-07-26] MEDS: Mometasone 200 MCG/Formoterol 5 MCG 120 PUFF INHALER INH SCH (18:52)
[2022-07-26] MEDS: Sulfameth/Trimethoprim DS 800-160mg TAB PO SCH (20:35)
[2022-07-27] MEDS: Sodium Chloride 0.9% 1,000 ML IV SCH (04:39)
[2022-07-27 05:08] LABS: #Monocytes 0.5 thou/uL (0.11-0.59); #Neutrophils 12.8 thou/uL (1.40-6.50); %Basophils 0.3 % (0.0-1.0); %Eosinophils 0.1 % (0.0-10.0); %Lymphocytes 7.2 % (21.0-51.0); %Monocytes 3.6 % (0.0-10.0); %Neutrophils 88.8 % (42.0-75.0); Mean Corpuscular HGB CONC 32.5 g/dL (32.0-36.0); Mean Corpuscular Hemoglobin 29.4 pg (27.0-31.0); Mean Corpuscular Volume 90.6 fL (78.0-98.0); Mean Platelet Volume 7.2 fL (7.4-10.4); Platelet Count 343 thou/uL (130-400); RBC Distribution Width 14.2 % (11.5-14.5); Red Blood Cell (RBC) Count 2.73 mill/uL (4.20-5.40); White Blood Cell (WBC) Count 14.4 thou/uL (4.8-10.8)
[2022-07-27 05:35] LABS: Anion Gap 17 mmol/L (10-20); BUN (Urea Nitrogen) 56 mg/dL (9.8-20.1); Calc. Creatinine Clearance 28 mL/min (70-130); Calcium 8.7 mg/dL (7.8-10.44); Carbon Dioxide 19 mmol/L (23-31); Chloride 96 mmol/L (98-107); Estimated GFR 24; Glucose 149 mg/dL (83-110); Magnesium 3.4 mg/dL (1.6-2.6); Potassium 4.5 mmol/L (3.5-5.1); Sodium 127 mmol/L (136-145)
[2022-07-27] MEDS: Mometasone 200 MCG/Formoterol 5 MCG 120 PUFF INHALER INH SCH ×2 (07:03→19:06)
[2022-07-27] MEDS: Atorvastatin Calcium 20 MG TAB PO SCH (09:23)
[2022-07-27] MEDS: ALPRAZolam 0.25 MG TAB PO SCH ×2 (09:23→20:34)
[2022-07-27] MEDS: Ferrous Sulfate 325 MG TAB PO SCH (09:23)
[2022-07-27] MEDS: Pantoprazole 40 MG VIAL IVP SCH ×2 (09:24→20:34)
[2022-07-27] MEDS: Sulfameth/Trimethoprim DS 800-160mg TAB PO SCH (09:24)
[2022-07-27] MEDS: methylPREDNISolone Sod Succ 40 MG VIAL IVP SCH ×2 (09:25→20:34)
[2022-07-27] MEDS: Heparin 5,000 UNITS/ML VIAL SC SCH (20:34)
[2022-07-28 04:41] LABS: Hemoglobin 7.7 g/dL (12.0-16.0); Mean Corpuscular HGB CONC 32.7 g/dL (32.0-36.0); Mean Corpuscular Hemoglobin 29.6 pg (27.0-31.0); Mean Corpuscular Volume 90.6 fL (78.0-98.0); Mean Platelet Volume 7.1 fL (7.4-10.4); Platelet Count 327 thou/uL (130-400); RBC Distribution Width 14.1 % (11.5-14.5); Red Blood Cell (RBC) Count 2.61 mill/uL (4.20-5.40)
[2022-07-28 04:45] LABS: Anion Gap 15 mmol/L (10-20); BUN (Urea Nitrogen) 58 mg/dL (9.8-20.1); Calc. Creatinine Clearance 27 mL/min (70-130); Calcium 8.5 mg/dL (7.8-10.44); Carbon Dioxide 21 mmol/L (23-31); Chloride 97 mmol/L (98-107); Estimated GFR 23; Glucose 145 mg/dL (83-110); Magnesium 3.1 mg/dL (1.6-2.6); Potassium 4.6 mmol/L (3.5-5.1); Sodium 128 mmol/L (136-145)
[2022-07-28 05:56] LABS: Band 6 % (5-11); Lymphocytes 7 % (21-51); MDiff Complete? YES; Metamyelocyte 1 % (0-0); Monocytes 1 % (0-10); Neutrophil 85 % (42-75)
[2022-07-28] MEDS: Mometasone 200 MCG/Formoterol 5 MCG 120 PUFF INHALER INH SCH ×2 (07:09→19:17)
[2022-07-28] MEDS: Atorvastatin Calcium 20 MG TAB PO SCH (09:22)
[2022-07-28] MEDS: Ferrous Sulfate 325 MG TAB PO SCH (09:22)
[2022-07-28] MEDS: Sulfameth/Trimethoprim DS 800-160mg TAB PO SCH (09:23)
[2022-07-28] MEDS: Heparin 5,000 UNITS/ML VIAL SC SCH ×2 (09:23→21:52)
[2022-07-28] MEDS: Pantoprazole 40 MG VIAL IVP SCH ×2 (09:23→21:52)
[2022-07-28] MEDS: methylPREDNISolone Sod Succ 40 MG VIAL IVP SCH (09:24)
[2022-07-28] MEDS: ALPRAZolam 0.25 MG TAB PO SCH ×2 (09:25→21:52)
[2022-07-28] MEDS ORDERED: methylPREDNISolone Sod Succ 40 MG VIAL IVP SCH (10:00)
[2022-07-28] MEDS: Benzonatate 100 MG CAP PO PRN (14:00)
[2022-07-28] MEDS ORDERED: Acetaminophen 325 MG TAB PO PRN (14:07)
[2022-07-29 04:55] LABS: Hemoglobin 7.5 g/dL (12.0-16.0); Mean Corpuscular HGB CONC 31.9 g/dL (32.0-36.0); Mean Corpuscular Hemoglobin 28.7 pg (27.0-31.0); Mean Corpuscular Volume 90.2 fL (78.0-98.0); Mean Platelet Volume 6.8 fL (7.4-10.4); Platelet Count 347 thou/uL (130-400); RBC Distribution Width 14.1 % (11.5-14.5); Red Blood Cell (RBC) Count 2.61 mill/uL (4.20-5.40); White Blood Cell (WBC) Count 15.4 thou/uL (4.8-10.8)
[2022-07-29 05:01] LABS: Anion Gap 13 mmol/L (10-20); BUN (Urea Nitrogen) 55 mg/dL (9.8-20.1); Calc. Creatinine Clearance 30 mL/min (70-130); Calcium 8.3 mg/dL (7.8-10.44); Carbon Dioxide 21 mmol/L (23-31); Chloride 98 mmol/L (98-107); Estimated GFR 26; Glucose 143 mg/dL (83-110); Magnesium 2.9 mg/dL (1.6-2.6); Potassium 4.6 mmol/L (3.5-5.1); Sodium 127 mmol/L (136-145)
[2022-07-29 05:26] LABS: Band 1 % (5-11); Burr Cells SLIGHT = 2-5 cells (100X) (0-1/hpf); Hypochromia SLIGHT = 6-15 cells (100X) (0-5/hpf); Lymphocytes 9 % (21-51); MDiff Complete? YES; Metamyelocyte 2 % (0-0); Monocytes 3 % (0-10); Neutrophil 85 % (42-75); Nucleated RBC 3 % (0); Platelet Morphology Comment Appears Adequate; Polychromasia SLIGHT = 2-3 cells (100X) (0-2/hpf)
[2022-07-29] MEDS: Mometasone 200 MCG/Formoterol 5 MCG 120 PUFF INHALER INH SCH ×2 (07:11→18:27)
[2022-07-29] MEDS ORDERED: methylPREDNISolone Sod Succ 40 MG VIAL IVP SCH (09:00)
[2022-07-29] MEDS: Ferrous Sulfate 325 MG TAB PO SCH (09:55)
[2022-07-29] MEDS: ALPRAZolam 0.25 MG TAB PO SCH ×2 (09:55→22:20)
[2022-07-29] MEDS: Sulfameth/Trimethoprim DS 800-160mg TAB PO SCH (09:57)
[2022-07-29] MEDS: Atorvastatin Calcium 20 MG TAB PO SCH (09:58)
[2022-07-29] MEDS: Heparin 5,000 UNITS/ML VIAL SC SCH ×2 (09:59→22:17)
[2022-07-29] MEDS: Pantoprazole 40 MG VIAL IVP SCH (11:56)
[2022-07-30 05:25] LABS: Hemoglobin 7.9 g/dL (12.0-16.0); Mean Corpuscular HGB CONC 32.2 g/dL (32.0-36.0); Mean Corpuscular Hemoglobin 29.1 pg (27.0-31.0); Mean Corpuscular Volume 90.3 fL (78.0-98.0); Mean Platelet Volume 6.8 fL (7.4-10.4); Platelet Count 385 thou/uL (130-400); RBC Distribution Width 14.1 % (11.5-14.5); White Blood Cell (WBC) Count 18.4 thou/uL (4.8-10.8)
[2022-07-30 05:30] LABS: Anion Gap 14 mmol/L (10-20); BUN (Urea Nitrogen) 53 mg/dL (9.8-20.1); Calc. Creatinine Clearance 32 mL/min (70-130); Calcium 8.3 mg/dL (7.8-10.44); Carbon Dioxide 21 mmol/L (23-31); Chloride 97 mmol/L (98-107); Estimated GFR 28; Glucose 85 mg/dL (83-110); Magnesium 2.8 mg/dL (1.6-2.6); Potassium 4.6 mmol/L (3.5-5.1); Sodium 127 mmol/L (136-145)
[2022-07-30 05:47] LABS: Band 5 % (5-11); Lymphocytes 15 % (21-51); MDiff Complete? YES; Metamyelocyte 2 % (0-0); Monocytes 2 % (0-10); Myelocyte 2 % (0-0); Neutrophil 74 % (42-75); Nucleated RBC 2 % (0); Platelet Morphology Comment Appears Adequate; RBC Morphology Normal
[2022-07-30] MEDS: Mometasone 200 MCG/Formoterol 5 MCG 120 PUFF INHALER INH SCH ×2 (07:26→19:05)
[2022-07-30] MEDS: Atorvastatin Calcium 20 MG TAB PO SCH (08:19)
[2022-07-30] MEDS: predniSONE 20 MG TAB PO SCH (08:19)
[2022-07-30] MEDS: Heparin 5,000 UNITS/ML VIAL SC SCH ×2 (08:19→21:19)
[2022-07-30] MEDS: Docusate 100 MG CAP PO SCH ×2 (08:20→21:19)
[2022-07-30] MEDS: Ferrous Sulfate 325 MG TAB PO SCH (08:20)
[2022-07-30] MEDS: ALPRAZolam 0.25 MG TAB PO SCH ×2 (08:20→21:19)
[2022-07-30] MEDS: Sulfameth/Trimethoprim DS 800-160mg TAB PO SCH (08:20)
[2022-07-31 05:40] LABS: Anion Gap 11 mmol/L (10-20); BUN (Urea Nitrogen) 41 mg/dL (9.8-20.1); Calc. Creatinine Clearance 40 mL/min (70-130); Calcium 8.4 mg/dL (7.8-10.44); Carbon Dioxide 24 mmol/L (23-31); Chloride 96 mmol/L (98-107); Estimated GFR 37; Glucose 89 mg/dL (83-110); Magnesium 2.5 mg/dL (1.6-2.6); Potassium 5.1 mmol/L (3.5-5.1); Sodium 126 mmol/L (136-145)
[2022-07-31 05:47] LABS: Anisocytosis SLIGHT = 6-15 cells (100X) (0-5/hpf); Band 12 % (5-11); Hemoglobin 8.1 g/dL (12.0-16.0); Lymphocytes 14 % (21-51); MDiff Complete? YES; Mean Corpuscular Volume 90.6 fL (78.0-98.0); Mean Platelet Volume 6.7 fL (7.4-10.4); Monocytes 5 % (0-10); Neutrophil 69 % (42-75); Platelet Count 374 thou/uL (130-400); RBC Distribution Width 14.3 % (11.5-14.5); Red Blood Cell (RBC) Count 2.79 mill/uL (4.20-5.40); White Blood Cell (WBC) Count 17.7 thou/uL (4.8-10.8)
[2022-07-31] MEDS: Mometasone 200 MCG/Formoterol 5 MCG 120 PUFF INHALER INH SCH ×2 (07:09→18:34)
[2022-07-31] MEDS: Heparin 5,000 UNITS/ML VIAL SC SCH ×2 (09:58→20:38)
[2022-07-31] MEDS: predniSONE 20 MG TAB PO SCH (09:58)
[2022-07-31] MEDS: Docusate 100 MG CAP PO SCH ×2 (09:58→20:45)
[2022-07-31] MEDS: ALPRAZolam 0.25 MG TAB PO SCH ×2 (09:58→20:40)
[2022-07-31] MEDS: Ferrous Sulfate 325 MG TAB PO SCH (09:59)
[2022-07-31] MEDS: Sulfameth/Trimethoprim DS 800-160mg TAB PO SCH (09:59)
[2022-07-31] MEDS: Atorvastatin Calcium 20 MG TAB PO SCH (09:59)
[2022-08-01 04:28] LABS: #Eosinphils 0.1 thou/uL (0.0-0.7); #Lymphocytes 1.7 thou/uL (1.20-3.40); #Monocytes 0.8 thou/uL (0.11-0.59); #Neutrophils 14.2 thou/uL (1.40-6.50); %Basophils 0.1 % (0.0-1.0); %Eosinophils 0.5 % (0.0-10.0); %Lymphocytes 10.3 % (21.0-51.0); %Monocytes 4.7 % (0.0-10.0); %Neutrophils 84.4 % (42.0-75.0); Hemoglobin 7.8 g/dL (12.0-16.0); Mean Corpuscular HGB CONC 32.4 g/dL (32.0-36.0); Mean Corpuscular Hemoglobin 29.5 pg (27.0-31.0); Mean Platelet Volume 6.7 fL (7.4-10.4); Platelet Count 382 thou/uL (130-400); RBC Distribution Width 14.5 % (11.5-14.5); Red Blood Cell (RBC) Count 2.63 mill/uL (4.20-5.40); White Blood Cell (WBC) Count 16.8 thou/uL (4.8-10.8)
[2022-08-01 04:32] LABS: Anion Gap 12 mmol/L (10-20); BUN (Urea Nitrogen) 28 mg/dL (9.8-20.1); Calc. Creatinine Clearance 52 mL/min (70-130); Calcium 8.2 mg/dL (7.8-10.44); Carbon Dioxide 22 mmol/L (23-31); Chloride 100 mmol/L (98-107); Estimated GFR 50; Glucose 112 mg/dL (83-110); Magnesium 2.1 mg/dL (1.6-2.6); Potassium 4.7 mmol/L (3.5-5.1); Sodium 129 mmol/L (136-145)
[2022-08-01] MEDS: Mometasone 200 MCG/Formoterol 5 MCG 120 PUFF INHALER INH SCH (07:10)
[2022-08-01] MEDS: Atorvastatin Calcium 20 MG TAB PO SCH (09:34)
[2022-08-01] MEDS: Heparin 5,000 UNITS/ML VIAL SC SCH (09:34)
[2022-08-01] MEDS: Ferrous Sulfate 325 MG TAB PO SCH (09:34)
[2022-08-01] MEDS: Sulfameth/Trimethoprim DS 800-160mg TAB PO SCH (09:34)
[2022-08-01] MEDS: predniSONE 20 MG TAB PO SCH (09:34)
[2022-08-01] MEDS: Docusate 100 MG CAP PO SCH (09:34)
[2022-08-01] MEDS: ALPRAZolam 0.25 MG TAB PO SCH (09:35)
[2022-08-01 13:26] VITALS: BP 125/58; TEMP 98.2
== END 2022-08-01 16:15 | disposition swing bed (61) | DRG 189 ==
LOC: ERS 14:13 → 2NO 18:21
PROVIDERS: ADMIT Student in an Organized Health Care Education/Training Program; ATTEND Student in an Organized Health Care Education/Training Program
PROC: 0DB98ZX Excision of Duodenum, Via Natural or Artificial Opening Endoscopic, Diagnostic (ICD-10-PCS; principal; 2022-07-24)
PROC: 0DB78ZX Excision of Stomach, Pylorus, Via Natural or Artificial Opening Endoscopic, Diagnostic (ICD-10-PCS; 2022-07-24)
PROC: 0DB28ZX Excision of Middle Esophagus, Via Natural or Artificial Opening Endoscopic, Diagnostic (ICD-10-PCS; 2022-07-24)
PROC: 0DB48ZX Excision of Esophagogastric Junction, Via Natural or Artificial Opening Endoscopic, Diagnostic (ICD-10-PCS; 2022-07-24)
DX: J96.01 Acute respiratory failure with hypoxia (principal); Z66 Do not resuscitate; Z51.5 Encounter for palliative care; Z20.822 Contact with and (suspected) exposure to COVID-19; E22.2 Syndrome of inappropriate secretion of antidiuretic hormone; I13.0 Hypertensive heart and chronic kidney disease with heart failure and stage 1 through stage 4 chronic kidney disease, or unspecified chronic kidney disease; I47.1 Supraventricular tachycardia; N17.9 Acute kidney failure, unspecified; E87.2 Acidosis; N18.4 Chronic kidney disease, stage 4 (severe); I50.32 Chronic diastolic (congestive) heart failure; K22.10 Ulcer of esophagus without bleeding; K21.9 Gastro-esophageal reflux disease without esophagitis; Z96.652 Presence of left artificial knee joint; K44.9 Diaphragmatic hernia without obstruction or gangrene; D50.9 Iron deficiency anemia, unspecified; K52.832 Lymphocytic colitis; I35.0 Nonrheumatic aortic (valve) stenosis; K21.00 Gastro-esophageal reflux disease with esophagitis, without bleeding; K25.9 Gastric ulcer, unspecified as acute or chronic, without hemorrhage or perforation; I49.1 Atrial premature depolarization; J44.9 Chronic obstructive pulmonary disease, unspecified; D63.1 Anemia in chronic kidney disease; F41.9 Anxiety disorder, unspecified; I48.91 Unspecified atrial fibrillation; Z87.440 Personal history of urinary (tract) infections; Z79.899 Other long term (current) drug therapy; Z79.52 Long term (current) use of systemic steroids; Z79.82 Long term (current) use of aspirin; Z98.890 Other specified postprocedural states; Z91.81 History of falling; Z79.2 Long term (current) use of antibiotics; Z98.1 Arthrodesis status
CPT/HCPCS: 36415; 71045; 71275; 76770; 80048; 80053; 82570; 82728; 82805; 83540; 83550; 83605; 83735; 83880; 83930; 83935; 84300; 84443; 84484; 84540; 85014; 85018; 85025; 85379; 86850; 86900; 86901; 87040; 87081; 87811; 88305; 88312; 88313; 88342; 93005; 93010; 93306; 94640; 96374; C9113; J1644; J1940; J2704; J2920; J2930; J3475; J7050; J7512; J7620; Q9967; U0002

== ENCOUNTER 2022-08-12 23:30 | Inpatient (IN) | payer MEDICARE, BC ==
[2022-08-13 00:28] LABS: Actual Bicarbonate (HCO3a) 25.2 mEq/L (22-28); Analyzer IN Cardio ER; Calcium, Ionized (arterial) 1.11 mmol/L (1.12-1.30); Carboxyhemoglobin (COHb) 0.3 gm% (0.0-3.0); Hemoglobin (Hb) 9.8 g/dL (12.0-16.0); O2 Tension (PaO2), arterial 61.3 mmHg (> 70.0); pH, Arterial 7.49 (7.35-7.45)
[2022-08-13 00:29] LABS: Puncture Site LRA
[2022-08-13 00:34] LABS: Mean Corpuscular HGB CONC 31.9 g/dL (32.0-36.0); Mean Corpuscular Hemoglobin 29.3 pg (27.0-31.0); Mean Corpuscular Volume 92.1 fL (78.0-98.0); Mean Platelet Volume 9.1 fL (7.4-10.4); Platelet Count 145 thou/uL (130-400); RBC Distribution Width 16.9 % (11.5-14.5); Red Blood Cell (RBC) Count 3.07 mill/uL (4.20-5.40); White Blood Cell (WBC) Count 10.2 thou/uL (4.8-10.8)
[2022-08-13 00:51] LABS: ALT (SGPT) 30 U/L (8-55); AST (SGOT) 29 U/L (5-34); Albumin 3.3 g/dL (3.4-4.8); Alkaline Phosphatase 41 U/L (40-110); Anion Gap 16 mmol/L (10-20); Anisocytosis SLIGHT = 6-15 cells (100X) (0-5/hpf); BUN (Urea Nitrogen) 24 mg/dL (9.8-20.1); Band 23 % (5-11); Bilirubin, Total 0.5 mg/dL (0.2-1.2); Burr Cells SLIGHT = 2-5 cells (100X) (0-1/hpf); Calc. Creatinine Clearance 0 mL/min (70-130); Calcium 8.3 mg/dL (7.8-10.44); Carbon Dioxide 23 mmol/L (23-31); Chloride 97 mmol/L (98-107); Estimated GFR 64; Globulin 2.5 g/dL (2.4-3.5); Glucose 161 mg/dL (83-110); Hypochromia SLIGHT = 6-15 cells (100X) (0-5/hpf); Lymphocytes 4 % (21-51); MDiff Complete? YES; Monocytes 1 % (0-10); Neutrophil 72 % (42-75); Nucleated RBC 1 % (0); Platelet Morphology Comment Appears Adequate; Polychromasia SLIGHT = 2-3 cells (100X) (0-2/hpf); Potassium 4.2 mmol/L (3.5-5.1); Protein, Total 5.8 g/dL (5.8-8.1); Sodium 132 mmol/L (136-145); Tear Drops SLIGHT = 2-5 cells (100X) (0-1/hpf)
[2022-08-13] MEDS ORDERED: hydrALAZINE 20 MG/ML VIAL SLOW IVP PRN (01:54)
[2022-08-13] MEDS ORDERED: Morphine 2 MG/ML VIAL SLOW IVP PRN (01:54)
[2022-08-13] MEDS ORDERED: Acetaminophen 325 MG TAB PO PRN (02:00)
[2022-08-13] MEDS ORDERED: Ondansetron PF 4 MG/2 ML Vial IVP PRN (02:00)
[2022-08-13] MEDS ORDERED: cefTRIAXone\\ROCEPHIN 1 GM in Sodium Chloride 0.9% 100 ML IVPB SCH (02:00)
[2022-08-13] MEDS ORDERED: Furosemide 40 MG/4 ML VIAL SLOW IVP SCH (02:00)
[2022-08-13] MEDS ORDERED: Ondansetron ODT 4 MG TAB SL PRN (02:00)
[2022-08-13] MEDS ORDERED: Metoprolol Tartrate 50 MG TAB PO SCH ×2 (02:15→02:45)
[2022-08-13 04:48] VITALS: BMI 37.3
[2022-08-13 05:05] LABS: #Lymphocytes 0.3 thou/uL (1.20-3.40); #Monocytes 0.3 thou/uL (0.11-0.59); #Neutrophils 9.8 thou/uL (1.40-6.50); %Basophils 0.4 % (0.0-1.0); %Lymphocytes 3.2 % (21.0-51.0); %Monocytes 2.4 % (0.0-10.0); %Neutrophils 94.1 % (42.0-75.0); Hemoglobin 8.7 g/dL (12.0-16.0); Mean Corpuscular HGB CONC 31.9 g/dL (32.0-36.0); Mean Corpuscular Hemoglobin 29.1 pg (27.0-31.0); Mean Corpuscular Volume 91.2 fL (78.0-98.0); Mean Platelet Volume 7.5 fL (7.4-10.4); Platelet Count 202 thou/uL (130-400); RBC Distribution Width 16.7 % (11.5-14.5); Red Blood Cell (RBC) Count 2.99 mill/uL (4.20-5.40); White Blood Cell (WBC) Count 10.4 thou/uL (4.8-10.8)
[2022-08-13 05:18] LABS: ALT (SGPT) 27 U/L (8-55); AST (SGOT) 10 U/L (5-34); Albumin 3.3 g/dL (3.4-4.8); Alkaline Phosphatase 42 U/L (40-110); Anion Gap 15 mmol/L (10-20); BUN (Urea Nitrogen) 22 mg/dL (9.8-20.1); Bilirubin, Total 0.7 mg/dL (0.2-1.2); Calc. Creatinine Clearance 67 mL/min (70-130); Calcium 8.5 mg/dL (7.8-10.44); Carbon Dioxide 26 mmol/L (23-31); Chloride 95 mmol/L (98-107); Estimated GFR 67; Globulin 1.9 g/dL (2.4-3.5); Glucose 154 mg/dL (83-110); Magnesium 1.9 mg/dL (1.6-2.6); Potassium 3.4 mmol/L (3.5-5.1); Protein, Total 5.2 g/dL (5.8-8.1); Sodium 133 mmol/L (136-145)
[2022-08-13 05:23] LABS: Troponin I Less than 0.010 ng/mL (< 0.028)
[2022-08-13] MEDS ORDERED: methylPREDNISolone Sod Succ 40 MG VIAL IVP SCH (06:00)
[2022-08-13 07:54] LABS: Troponin I Less than 0.010 ng/mL (< 0.028)
[2022-08-13] MEDS: Atorvastatin Calcium 20 MG TAB PO SCH (09:49)
[2022-08-13] MEDS: ALPRAZolam 0.25 MG TAB PO SCH ×2 (09:49→20:46)
[2022-08-13] MEDS: Aspirin 81 mg Enteric Coated Tablet PO SCH (09:49)
[2022-08-13] MEDS: Enoxaparin Sodium 40 MG/0.4 ML SYRINGE SC SCH (09:49)
[2022-08-13] MEDS: Metoprolol Tartrate 50 MG TAB PO SCH ×2 (09:52→20:04)
[2022-08-13] MEDS: Ipratropium/Albuterol Sulfate 4 GM AER IH SCH ×3 (10:14→18:33)
[2022-08-13] MEDS ORDERED: Pharmacy to Dose REMDESIVIR PO PRN (11:38)
[2022-08-13] MEDS ORDERED: Benzonatate 100 MG CAP PO PRN (11:41)
[2022-08-13] MEDS: Furosemide 40 MG/4 ML VIAL SLOW IVP SCH ×2 (12:58→20:46)
[2022-08-13] MEDS ORDERED: Albuterol 200 PUFF (6.7GM INHALER) INH SCH (13:00)
[2022-08-13] MEDS: Vancomycin 1.5 GRAM/300 ML BAG 1.5 GM in Premix Bag 1 BAG IVPB SCH (13:14)
[2022-08-13] MEDS ORDERED: Iopamidol-370 76% 500 ML 1 ML ONE (14:02)
[2022-08-13 14:07] LABS: Bacteria/HPF None Seen HPF (None Seen); Bilirubin Negative (Negative); Blood, Urine Negative (Negative); Clarity Clear (Clear); Glucose, Urine (Dipstick) Normal (Negative); Ketone, Urine Negative (Negative); Leukocyte 75 Leu/uL (Negative); Mucous/LPF Rare LPF (<2+); Nitrite Negative (Negative); Protein, Urine (Dipstick) Negative (Neg-Trace); RBC/HPF 0-3 HPF (0-3); Specific Gravity, Urine 1.017 (1.002-1.036); Squamous Epithelial 0-3 HPF (0-3); Urobilinogen Normal mg/dL (Less than 2)
[2022-08-13 14:10] LABS: Urine Culture Reflex Yes Yes
[2022-08-13] MEDS: Cefepime 2 GM in Sodium Chloride 0.9% 100 ML IVPB SCH ×2 (14:40→20:46)
[2022-08-13] MEDS: Dexamethasone 10 MG/ML VIAL SLOW IVP SCH (20:46)
[2022-08-13] MEDS: guaiFENesin/DM ER PO SCH (20:47)
[2022-08-13] MEDS ORDERED: REMDESIVIR 200 MG in Sodium Chloride 0.9% 250 ML 210 ML IV SCH (21:00)
[2022-08-13] MEDS ORDERED: REMDESIVIR 100 MG in Sodium Chloride 0.9% 250 ML 230 ML IV SCH (21:00)
[2022-08-14] MEDS: Ipratropium/Albuterol Sulfate 4 GM AER IH SCH ×4 (02:16→20:45)
[2022-08-14] MEDS: Furosemide 40 MG/4 ML VIAL SLOW IVP SCH ×3 (05:38→20:26)
[2022-08-14] MEDS: Cefepime 2 GM in Sodium Chloride 0.9% 100 ML IVPB SCH ×3 (05:38→20:28)
[2022-08-14 07:27] LABS: ALT (SGPT) 25 U/L (8-55); AST (SGOT) 13 U/L (5-34); Albumin 3.4 g/dL (3.4-4.8); Alkaline Phosphatase 45 U/L (40-110); Bilirubin, Direct 0.2 mg/dL (0.1-0.3); Bilirubin, Total 0.4 mg/dL (0.2-1.2)
[2022-08-14] MEDS: Aspirin 81 mg Enteric Coated Tablet PO SCH (10:16)
[2022-08-14] MEDS: Dexamethasone 10 MG/ML VIAL SLOW IVP SCH ×2 (10:16→20:26)
[2022-08-14] MEDS: Atorvastatin Calcium 20 MG TAB PO SCH (10:16)
[2022-08-14] MEDS: ALPRAZolam 0.25 MG TAB PO SCH ×2 (10:16→20:26)
[2022-08-14] MEDS: Enoxaparin Sodium 40 MG/0.4 ML SYRINGE SC SCH (10:17)
[2022-08-14] MEDS: guaiFENesin/DM ER PO SCH ×2 (10:18→20:25)
[2022-08-14] MEDS: Vancomycin 1.5 GRAM/300 ML BAG 1.5 GM in Premix Bag 1 BAG IVPB SCH (12:41)
[2022-08-14] MEDS: REMDESIVIR 100 MG in Sodium Chloride 0.9% 250 ML 230 ML IV SCH (20:25)
[2022-08-15] MEDS: Ipratropium/Albuterol Sulfate 4 GM AER IH SCH ×4 (01:46→18:15)
[2022-08-15 04:15] LABS: ALT (SGPT) 23 U/L (8-55); AST (SGOT) 14 U/L (5-34); Albumin 3.4 g/dL (3.4-4.8); Alkaline Phosphatase 43 U/L (40-110); Bilirubin, Direct 0.2 mg/dL (0.1-0.3); Bilirubin, Total 0.4 mg/dL (0.2-1.2); Protein, Total 6.1 g/dL (5.8-8.1)
[2022-08-15] MEDS: Cefepime 2 GM in Sodium Chloride 0.9% 100 ML IVPB SCH ×3 (06:03→20:53)
[2022-08-15] MEDS: Furosemide 40 MG/4 ML VIAL SLOW IVP SCH ×2 (06:03→09:22)
[2022-08-15] MEDS: Enoxaparin Sodium 40 MG/0.4 ML SYRINGE SC SCH (09:21)
[2022-08-15] MEDS: Atorvastatin Calcium 20 MG TAB PO SCH (09:22)
[2022-08-15] MEDS: Dexamethasone 10 MG/ML VIAL SLOW IVP SCH ×2 (09:22→20:30)
[2022-08-15] MEDS: ALPRAZolam 0.25 MG TAB PO SCH ×2 (09:22→20:29)
[2022-08-15] MEDS: guaiFENesin/DM ER PO SCH ×2 (09:22→20:30)
[2022-08-15] MEDS: Aspirin 81 mg Enteric Coated Tablet PO SCH (09:22)
[2022-08-15 12:29] LABS: Vancomycin, Trough 30.6 ug/mL
[2022-08-15] MEDS: REMDESIVIR 100 MG in Sodium Chloride 0.9% 250 ML 230 ML IV SCH (20:29)
[2022-08-15] MEDS: Senokot S 8.6-50 MG TAB PO SCH (20:30)
[2022-08-16] MEDS: Ipratropium/Albuterol Sulfate 4 GM AER IH SCH ×5 (00:30→23:49)
[2022-08-16 04:31] LABS: ALT (SGPT) 23 U/L (8-55); AST (SGOT) 22 U/L (5-34); Albumin 3.3 g/dL (3.4-4.8); Alkaline Phosphatase 38 U/L (40-110); Anion Gap 17 mmol/L (10-20); BUN (Urea Nitrogen) 48 mg/dL (9.8-20.1); Bilirubin, Direct 0.1 mg/dL (0.1-0.3); Bilirubin, Total 0.3 mg/dL (0.2-1.2); Calc. Creatinine Clearance 53 mL/min (70-130); Calcium 8.4 mg/dL (7.8-10.44); Carbon Dioxide 29 mmol/L (23-31); Chloride 86 mmol/L (98-107); Estimated GFR 50; Glucose 135 mg/dL (83-110); Sodium 129 mmol/L (136-145)
[2022-08-16 04:38] LABS: Potassium 2.8 mmol/L (3.5-5.1)
[2022-08-16] MEDS ORDERED: Potassium Bicarbonate/Cit Ac 20 MEQ TAB PO SCH (05:00)
[2022-08-16] MEDS: Cefepime 2 GM in Sodium Chloride 0.9% 100 ML IVPB SCH (05:13)
[2022-08-16] MEDS ORDERED: FLU VACC QS2022-23(65YR UP)/PF 240 MCG/0.7 ML SYRINGE IM ONE (05:15)
[2022-08-16 05:21] LABS: Magnesium 1.7 mg/dL (1.6-2.6)
[2022-08-16] MEDS ORDERED: Potassium Chloride 20 MEQ TAB PO SCH ×2 (05:30→22:30)
[2022-08-16] MEDS ORDERED: Magnesium 2 GM/50 ML(in water) 2 GM in Premix Bag 1 BAG IVPB SCH (09:00)
[2022-08-16] MEDS: Dexamethasone 10 MG/ML VIAL SLOW IVP SCH ×2 (09:13→22:17)
[2022-08-16] MEDS: Furosemide 40 MG/4 ML VIAL SLOW IVP SCH (09:13)
[2022-08-16] MEDS: Ascorbic Acid 500 mg Chewable Tablet PO SCH (09:14)
[2022-08-16] MEDS: guaiFENesin/DM ER PO SCH ×2 (09:14→22:19)
[2022-08-16] MEDS: Enoxaparin Sodium 40 MG/0.4 ML SYRINGE SC SCH (09:14)
[2022-08-16] MEDS: Senokot S 8.6-50 MG TAB PO SCH ×2 (09:14→22:20)
[2022-08-16] MEDS: Aspirin 81 mg Enteric Coated Tablet PO SCH (09:14)
[2022-08-16] MEDS: ALPRAZolam 0.25 MG TAB PO SCH ×2 (09:14→22:18)
[2022-08-16] MEDS: Zinc Sulfate 220 MG CAP PO SCH (09:14)
[2022-08-16] MEDS: Atorvastatin Calcium 20 MG TAB PO SCH (09:14)
[2022-08-16] MEDS: Cefepime 1 GM in Sodium Chloride 0.9% 100 ML IVPB SCH (17:02)
[2022-08-16 22:05] LABS: Anion Gap 14 mmol/L (10-20); BUN (Urea Nitrogen) 45 mg/dL (9.8-20.1); Calc. Creatinine Clearance 54 mL/min (70-130); Carbon Dioxide 36 mmol/L (23-31); Chloride 85 mmol/L (98-107); Estimated GFR 51; Glucose 136 mg/dL (83-110); Sodium 132 mmol/L (136-145)
[2022-08-16 22:09] LABS: Potassium 2.5 mmol/L (3.5-5.1)
[2022-08-16] MEDS: REMDESIVIR 100 MG in Sodium Chloride 0.9% 250 ML 230 ML IV SCH (22:18)
[2022-08-16] MEDS ORDERED: Electrolyte Replacement Protocol 1 EACH FS PRN (22:30)
[2022-08-16] MEDS: Potassium Chloride 20 MEQ in Premix Bag 1 BAG IVPB SCH ×2 (22:51→23:49)
[2022-08-17 05:13] LABS: ALT (SGPT) 27 U/L (8-55); AST (SGOT) 14 U/L (5-34); Albumin 3.6 g/dL (3.4-4.8); Alkaline Phosphatase 45 U/L (40-110); Anion Gap 16 mmol/L (10-20); BUN (Urea Nitrogen) 40 mg/dL (9.8-20.1); Bilirubin, Direct 0.2 mg/dL (0.1-0.3); Bilirubin, Total 0.4 mg/dL (0.2-1.2); Calc. Creatinine Clearance 58 mL/min (70-130); Calcium 9.1 mg/dL (7.8-10.44); Carbon Dioxide 32 mmol/L (23-31); Chloride 90 mmol/L (98-107); Estimated GFR 56; Globulin 2.6 g/dL (2.4-3.5); Glucose 155 mg/dL (83-110); Potassium 3.5 mmol/L (3.5-5.1); Protein, Total 6.2 g/dL (5.8-8.1); Sodium 134 mmol/L (136-145)
[2022-08-17] MEDS: Cefepime 1 GM in Sodium Chloride 0.9% 100 ML IVPB SCH ×2 (06:21→17:49)
[2022-08-17] MEDS ORDERED: Potassium Chloride 20 MEQ TAB PO SCH (09:00)
[2022-08-17] MEDS ORDERED: Magnesium 2 GM/50 ML(in water) 2 GM in Premix Bag 1 BAG IVPB SCH (09:00)
[2022-08-17] MEDS: Ipratropium/Albuterol Sulfate 4 GM AER IH SCH ×3 (10:49→18:15)
[2022-08-17] MEDS: Aspirin 81 mg Enteric Coated Tablet PO SCH (11:00)
[2022-08-17] MEDS: Dexamethasone 10 MG/ML VIAL SLOW IVP SCH ×2 (11:00→21:09)
[2022-08-17] MEDS: Furosemide 40 MG/4 ML VIAL SLOW IVP SCH (11:00)
[2022-08-17] MEDS: guaiFENesin/DM ER PO SCH ×2 (11:00→21:08)
[2022-08-17] MEDS: Zinc Sulfate 220 MG CAP PO SCH (11:01)
[2022-08-17] MEDS: Ascorbic Acid 500 mg Chewable Tablet PO SCH (11:01)
[2022-08-17] MEDS: Enoxaparin Sodium 40 MG/0.4 ML SYRINGE SC SCH (11:02)
[2022-08-17] MEDS: Senokot S 8.6-50 MG TAB PO SCH ×2 (11:03→21:08)
[2022-08-17] MEDS: Atorvastatin Calcium 20 MG TAB PO SCH (11:04)
[2022-08-17] MEDS: ALPRAZolam 0.25 MG TAB PO SCH ×2 (11:08→21:08)
[2022-08-17 15:15] LABS: Potassium 3.7 mmol/L (3.5-5.1)
[2022-08-17] MEDS: REMDESIVIR 100 MG in Sodium Chloride 0.9% 250 ML 230 ML IV SCH (21:07)
[2022-08-18] MEDS: Ipratropium/Albuterol Sulfate 4 GM AER IH SCH ×4 (00:27→18:20)
[2022-08-18 04:43] LABS: #Lymphocytes 0.3 thou/uL (1.20-3.40); #Monocytes 0.3 thou/uL (0.11-0.59); #Neutrophils 8.1 thou/uL (1.40-6.50); %Eosinophils 0.2 % (0.0-10.0); %Lymphocytes 3.1 % (21.0-51.0); %Neutrophils 93.7 % (42.0-75.0); Hemoglobin 9.8 g/dL (12.0-16.0); Mean Corpuscular HGB CONC 31.1 g/dL (32.0-36.0); Mean Corpuscular Hemoglobin 28.3 pg (27.0-31.0); Mean Corpuscular Volume 90.9 fL (78.0-98.0); Mean Platelet Volume 7.9 fL (7.4-10.4); Platelet Count 257 thou/uL (130-400); RBC Distribution Width 16.2 % (11.5-14.5); Red Blood Cell (RBC) Count 3.47 mill/uL (4.20-5.40); White Blood Cell (WBC) Count 8.6 thou/uL (4.8-10.8)
[2022-08-18 04:59] LABS: Anion Gap 12 mmol/L (10-20); BUN (Urea Nitrogen) 45 mg/dL (9.8-20.1); Calc. Creatinine Clearance 50 mL/min (70-130); Calcium 9.5 mg/dL (7.8-10.44); Carbon Dioxide 33 mmol/L (23-31); Chloride 95 mmol/L (98-107); Estimated GFR 48; Glucose 169 mg/dL (83-110); Magnesium 2.5 mg/dL (1.6-2.6); Potassium 3.3 mmol/L (3.5-5.1); Sodium 137 mmol/L (136-145)
[2022-08-18] MEDS: Cefepime 1 GM in Sodium Chloride 0.9% 100 ML IVPB SCH ×2 (05:49→16:02)
[2022-08-18] MEDS ORDERED: Potassium Chloride 20 MEQ TAB PO SCH (08:00)
[2022-08-18] MEDS: Senokot S 8.6-50 MG TAB PO SCH ×2 (10:41→22:00)
[2022-08-18] MEDS: guaiFENesin/DM ER PO SCH ×2 (10:41→22:01)
[2022-08-18] MEDS: Aspirin 81 mg Enteric Coated Tablet PO SCH (10:42)
[2022-08-18] MEDS: Zinc Sulfate 220 MG CAP PO SCH (10:42)
[2022-08-18] MEDS: Ascorbic Acid 500 mg Chewable Tablet PO SCH (10:42)
[2022-08-18] MEDS: ALPRAZolam 0.25 MG TAB PO SCH ×2 (10:42→22:00)
[2022-08-18] MEDS: Atorvastatin Calcium 20 MG TAB PO SCH (10:42)
[2022-08-18] MEDS: Dexamethasone 10 MG/ML VIAL SLOW IVP SCH (10:43)
[2022-08-18] MEDS: Furosemide 40 MG/4 ML VIAL SLOW IVP SCH (10:43)
[2022-08-18] MEDS: Enoxaparin Sodium 40 MG/0.4 ML SYRINGE SC SCH (10:43)
[2022-08-18] MEDS: Nystatin 500,000 UNITS/5 ML UDCUP SSW SCH ×3 (14:24→22:01)
[2022-08-18 15:01] LABS: Potassium 3.6 mmol/L (3.5-5.1)
[2022-08-19] MEDS: Ipratropium/Albuterol Sulfate 4 GM AER IH SCH ×6 (00:39→21:26)
[2022-08-19 04:38] LABS: Anion Gap 17 mmol/L (10-20); BUN (Urea Nitrogen) 51 mg/dL (9.8-20.1); Calc. Creatinine Clearance 46 mL/min (70-130); Calcium 9.5 mg/dL (7.8-10.44); Carbon Dioxide 26 mmol/L (23-31); Chloride 97 mmol/L (98-107); Estimated GFR 46; Glucose 138 mg/dL (83-110); Potassium 3.4 mmol/L (3.5-5.1); Sodium 137 mmol/L (136-145)
[2022-08-19] MEDS: Cefepime 1 GM in Sodium Chloride 0.9% 100 ML IVPB SCH ×2 (05:01→17:05)
[2022-08-19] MEDS: Enoxaparin Sodium 40 MG/0.4 ML SYRINGE SC SCH (08:43)
[2022-08-19] MEDS: Furosemide 40 MG TAB PO SCH (08:43)
[2022-08-19] MEDS: Senokot S 8.6-50 MG TAB PO SCH ×2 (08:43→21:25)
[2022-08-19] MEDS: Zinc Sulfate 220 MG CAP PO SCH (08:43)
[2022-08-19] MEDS: Aspirin 81 mg Enteric Coated Tablet PO SCH (08:43)
[2022-08-19] MEDS: Ascorbic Acid 500 mg Chewable Tablet PO SCH (08:44)
[2022-08-19] MEDS: Atorvastatin Calcium 20 MG TAB PO SCH (08:44)
[2022-08-19] MEDS: guaiFENesin/DM ER PO SCH ×2 (08:44→21:25)
[2022-08-19] MEDS: ALPRAZolam 0.25 MG TAB PO SCH (08:44)
[2022-08-19] MEDS: Nystatin 500,000 UNITS/5 ML UDCUP SSW SCH ×4 (08:45→21:26)
[2022-08-19] MEDS ORDERED: Dexamethasone 10 MG/ML VIAL SLOW IVP SCH (09:00)
[2022-08-19] MEDS ORDERED: Potassium Chloride 20 MEQ TAB PO SCH (09:00)
[2022-08-19] MEDS ORDERED: ALPRAZolam 0.25 MG TAB PO PRN (13:35)
[2022-08-19] MEDS ORDERED: Ipratropium/Albuterol Sulfate 4 GM AER IH PRN (13:50)
[2022-08-19] MEDS: methylPREDNISolone Sod Succ 40 MG VIAL IVP SCH ×2 (17:05→21:26)
[2022-08-20 04:46] LABS: Mean Corpuscular HGB CONC 30.5 g/dL (32.0-36.0); Mean Corpuscular Hemoglobin 27.9 pg (27.0-31.0); Mean Corpuscular Volume 91.3 fL (78.0-98.0); Mean Platelet Volume 8.2 fL (7.4-10.4); Platelet Count 306 thou/uL (130-400); RBC Distribution Width 16.2 % (11.5-14.5); Red Blood Cell (RBC) Count 3.58 mill/uL (4.20-5.40); White Blood Cell (WBC) Count 9.5 thou/uL (4.8-10.8)
[2022-08-20 05:11] LABS: Anion Gap 17 mmol/L (10-20); BUN (Urea Nitrogen) 53 mg/dL (9.8-20.1); Calc. Creatinine Clearance 45 mL/min (70-130); Calcium 9.7 mg/dL (7.8-10.44); Carbon Dioxide 28 mmol/L (23-31); Chloride 98 mmol/L (98-107); Estimated GFR 46; Glucose 162 mg/dL (83-110); Potassium 4.1 mmol/L (3.5-5.1); Sodium 139 mmol/L (136-145)
[2022-08-20 05:13] LABS: Band 13 % (5-11); Lymphocytes 5 % (21-51); MDiff Complete? YES; Metamyelocyte 1 % (0-0); Monocytes 3 % (0-10); Myelocyte 4 % (0-0); Neutrophil 74 % (42-75); Schistocytes SLIGHT = 2-5 cells (100X) (0-1/hpf)
[2022-08-20] MEDS: Cefepime 1 GM in Sodium Chloride 0.9% 100 ML IVPB SCH ×2 (05:33→22:46)
[2022-08-20] MEDS: methylPREDNISolone Sod Succ 40 MG VIAL IVP SCH ×3 (05:33→22:41)
[2022-08-20] MEDS: Aspirin 81 mg Enteric Coated Tablet PO SCH (09:25)
[2022-08-20] MEDS: Enoxaparin Sodium 40 MG/0.4 ML SYRINGE SC SCH (09:25)
[2022-08-20] MEDS: Furosemide 40 MG TAB PO SCH (09:25)
[2022-08-20] MEDS: Nystatin 500,000 UNITS/5 ML UDCUP SSW SCH ×4 (09:26→22:53)
[2022-08-20] MEDS: guaiFENesin/DM ER PO SCH ×2 (09:41→22:42)
[2022-08-20] MEDS: Atorvastatin Calcium 20 MG TAB PO SCH (09:49)
[2022-08-20] MEDS: Zinc Sulfate 220 MG CAP PO SCH (12:40)
[2022-08-20] MEDS: Ascorbic Acid 500 mg Chewable Tablet PO SCH (12:40)
[2022-08-20] MEDS: Senokot S 8.6-50 MG TAB PO SCH ×2 (12:40→22:42)
[2022-08-21] MEDS: Ipratropium/Albuterol Sulfate 4 GM AER IH SCH ×4 (00:45→14:39)
[2022-08-21 05:11] LABS: Anion Gap 17 mmol/L (10-20); BUN (Urea Nitrogen) 51 mg/dL (9.8-20.1); Calc. Creatinine Clearance 49 mL/min (70-130); Calcium 9.4 mg/dL (7.8-10.44); Carbon Dioxide 27 mmol/L (23-31); Chloride 100 mmol/L (98-107); Estimated GFR 51; Glucose 162 mg/dL (83-110); Sodium 141 mmol/L (136-145)
[2022-08-21 05:16] LABS: Potassium 2.9 mmol/L (3.5-5.1)
[2022-08-21 06:21] LABS: Band 23 % (5-11); Hemoglobin 10.1 g/dL (12.0-16.0); Lymphocytes 9 % (21-51); MDiff Complete? YES; Mean Corpuscular HGB CONC 30.9 g/dL (32.0-36.0); Mean Corpuscular Hemoglobin 28.2 pg (27.0-31.0); Mean Platelet Volume 8.2 fL (7.4-10.4); Monocytes 2 % (0-10); Neutrophil 66 % (42-75); Nucleated RBC 2 % (0); Platelet Count 284 thou/uL (130-400); RBC Distribution Width 16.3 % (11.5-14.5); Red Blood Cell (RBC) Count 3.57 mill/uL (4.20-5.40); White Blood Cell (WBC) Count 10.6 thou/uL (4.8-10.8)
[2022-08-21] MEDS: methylPREDNISolone Sod Succ 40 MG VIAL IVP SCH ×3 (06:38→20:50)
[2022-08-21] MEDS: Cefepime 1 GM in Sodium Chloride 0.9% 100 ML IVPB SCH ×3 (06:38→20:11)
[2022-08-21] MEDS ORDERED: Magnesium 2 GM/50 ML(in water) 2 GM in Premix Bag 1 BAG IVPB SCH (08:00)
[2022-08-21] MEDS: Ascorbic Acid 500 mg Chewable Tablet PO SCH (09:40)
[2022-08-21] MEDS: Atorvastatin Calcium 20 MG TAB PO SCH (09:41)
[2022-08-21] MEDS: Diltiazem HCl CD 300 mg Capsule PO SCH (09:41)
[2022-08-21] MEDS: Furosemide 40 MG TAB PO SCH (09:41)
[2022-08-21] MEDS: Aspirin 81 mg Enteric Coated Tablet PO SCH (09:41)
[2022-08-21] MEDS: Senokot S 8.6-50 MG TAB PO SCH ×2 (09:41→20:50)
[2022-08-21] MEDS: Nystatin 500,000 UNITS/5 ML UDCUP SSW SCH ×4 (09:42→20:50)
[2022-08-21] MEDS: Enoxaparin Sodium 40 MG/0.4 ML SYRINGE SC SCH (09:42)
[2022-08-21] MEDS: guaiFENesin/DM ER PO SCH ×2 (09:42→20:50)
[2022-08-21] MEDS: Zinc Sulfate 220 MG CAP PO SCH (09:42)
[2022-08-21 10:27] LABS: Bacteria/HPF None Seen HPF (None Seen); Bilirubin Negative (Negative); Blood, Urine 2+ (Negative); Clarity Clear (Clear); Glucose, Urine (Dipstick) Normal (Negative); Ketone, Urine Negative (Negative); Leukocyte Negative Leu/uL (Negative); Nitrite Negative (Negative); Protein, Urine (Dipstick) 70 mg/dL (Neg-Trace); RBC/HPF 0-3 HPF (0-3); Specific Gravity, Urine 1.016 (1.002-1.036); Squamous Epithelial 0-3 HPF (0-3); Urobilinogen Normal mg/dL (Less than 2)
[2022-08-21 10:30] LABS: Urine Culture Reflex Yes Yes
[2022-08-21] MEDS: Potassium Chloride 20 MEQ TAB PO SCH ×2 (10:34→13:44)
[2022-08-21] MEDS ORDERED: Potassium Chloride 40 MEQ in Premix Bag 1 BAG IVPB SCH (13:15)
[2022-08-21] MEDS: Potassium Chloride 20 MEQ in Premix Bag 1 BAG IVPB SCH ×2 (13:43→16:40)
[2022-08-22] MEDS: Ipratropium/Albuterol Sulfate 4 GM AER IH SCH ×3 (00:49→16:00)
[2022-08-22 05:06] LABS: Anion Gap 16 mmol/L (10-20); BUN (Urea Nitrogen) 59 mg/dL (9.8-20.1); Calc. Creatinine Clearance 41 mL/min (70-130); Calcium 9.7 mg/dL (7.8-10.44); Carbon Dioxide 30 mmol/L (23-31); Chloride 104 mmol/L (98-107); Estimated GFR 43; Glucose 165 mg/dL (83-110); Sodium 147 mmol/L (136-145)
[2022-08-22 05:15] LABS: Potassium 2.9 mmol/L (3.5-5.1)
[2022-08-22] MEDS: Cefepime 1 GM in Sodium Chloride 0.9% 100 ML IVPB SCH ×2 (05:22→20:51)
[2022-08-22] MEDS: methylPREDNISolone Sod Succ 40 MG VIAL IVP SCH ×3 (05:22→21:52)
[2022-08-22 05:28] LABS: Band 8 % (5-11); Hemoglobin 10.7 g/dL (12.0-16.0); Lymphocytes 2 % (21-51); MDiff Complete? YES; Mean Corpuscular Hemoglobin 28.3 pg (27.0-31.0); Mean Corpuscular Volume 91.2 fL (78.0-98.0); Mean Platelet Volume 8.2 fL (7.4-10.4); Metamyelocyte 3 % (0-0); Myelocyte 6 % (0-0); Neutrophil 81 % (42-75); Platelet Count 331 thou/uL (130-400); RBC Distribution Width 16.4 % (11.5-14.5); Red Blood Cell (RBC) Count 3.78 mill/uL (4.20-5.40); White Blood Cell (WBC) Count 13.3 thou/uL (4.8-10.8)
[2022-08-22] MEDS ORDERED: Potassium Chloride 20 MEQ TAB PO SCH (08:00)
[2022-08-22] MEDS: Potassium Chloride 20 MEQ in Premix Bag 1 BAG IVPB SCH ×4 (10:15→16:47)
[2022-08-22] MEDS: Nystatin 500,000 UNITS/5 ML UDCUP SSW SCH ×4 (10:35→21:49)
[2022-08-22] MEDS: Diltiazem HCl CD 300 mg Capsule PO SCH (10:35)
[2022-08-22] MEDS: Enoxaparin Sodium 40 MG/0.4 ML SYRINGE SC SCH (10:43)
[2022-08-22] MEDS: Ascorbic Acid 500 mg Chewable Tablet PO SCH (10:46)
[2022-08-22] MEDS: Aspirin 81 mg Enteric Coated Tablet PO SCH (10:46)
[2022-08-22] MEDS: guaiFENesin/DM ER PO SCH ×2 (10:47→21:49)
[2022-08-22] MEDS: Atorvastatin Calcium 20 MG TAB PO SCH (10:47)
[2022-08-22] MEDS: Furosemide 40 MG TAB PO SCH (10:47)
[2022-08-22] MEDS: Senokot S 8.6-50 MG TAB PO SCH ×2 (10:48→21:50)
[2022-08-22] MEDS: Zinc Sulfate 220 MG CAP PO SCH (10:48)
[2022-08-22] MEDS ORDERED: Metoprolol Tartrate 5 MG/5 ML VIAL IVP SCH (11:51)
[2022-08-23] MEDS: Cefepime 1 GM in Sodium Chloride 0.9% 100 ML IVPB SCH (04:33)
[2022-08-23] MEDS: methylPREDNISolone Sod Succ 40 MG VIAL IVP SCH (04:59)
[2022-08-23] MEDS: Ipratropium/Albuterol Sulfate 4 GM AER IH SCH ×2 (05:55→13:50)
[2022-08-23] MEDS: Atorvastatin Calcium 20 MG TAB PO SCH (07:49)
[2022-08-23] MEDS: Aspirin 81 mg Enteric Coated Tablet PO SCH (07:49)
[2022-08-23] MEDS: Diltiazem HCl CD 300 mg Capsule PO SCH (07:49)
[2022-08-23] MEDS: Ascorbic Acid 500 mg Chewable Tablet PO SCH (07:49)
[2022-08-23] MEDS: Furosemide 40 MG TAB PO SCH (07:50)
[2022-08-23] MEDS: Zinc Sulfate 220 MG CAP PO SCH (07:50)
[2022-08-23] MEDS: Nystatin 500,000 UNITS/5 ML UDCUP SSW SCH (07:50)
[2022-08-23] MEDS: Senokot S 8.6-50 MG TAB PO SCH (07:50)
[2022-08-23] MEDS: guaiFENesin/DM ER PO SCH (07:50)
[2022-08-23] MEDS: Enoxaparin Sodium 40 MG/0.4 ML SYRINGE SC SCH (08:50)
[2022-08-23 10:25] VITALS: BP 146/79; TEMP 97.5
== END 2022-08-23 10:50 | disposition hospice, home (50) | DRG 177 ==
LOC: ERS 23:30 → IMCU/EMU 08-13 01:38 → 2NO 08-16 21:18
PROVIDERS: ADMIT Internal Medicine; ATTEND Internal Medicine
PROC: XW033E5 Introduction of Remdesivir Anti-infective into Peripheral Vein, Percutaneous Approach, New Technology Group 5 (ICD-10-PCS; principal; 2022-08-13)
PROC: 8E0ZXY6 Isolation (ICD-10-PCS; 2022-08-13)
PROC: 5A09357 Assistance with Respiratory Ventilation, Less than 24 Consecutive Hours, Continuous Positive Airway Pressure (ICD-10-PCS; 2022-08-13)
DX: U07.1 COVID-19 (principal); G93.41 Metabolic encephalopathy; I50.33 Acute on chronic diastolic (congestive) heart failure; J15.9 Unspecified bacterial pneumonia; J69.0 Pneumonitis due to inhalation of food and vomit; J96.01 Acute respiratory failure with hypoxia; J12.82 Pneumonia due to coronavirus disease 2019; I13.0 Hypertensive heart and chronic kidney disease with heart failure and stage 1 through stage 4 chronic kidney disease, or unspecified chronic kidney disease; E87.1 Hypo-osmolality and hyponatremia; I47.1 Supraventricular tachycardia; N39.0 Urinary tract infection, site not specified; J44.1 Chronic obstructive pulmonary disease with (acute) exacerbation; B37.0 Candidal stomatitis; N17.9 Acute kidney failure, unspecified; Z66 Do not resuscitate; K21.9 Gastro-esophageal reflux disease without esophagitis; E78.5 Hyperlipidemia, unspecified; Z96.652 Presence of left artificial knee joint; E66.9 Obesity, unspecified; I35.0 Nonrheumatic aortic (valve) stenosis; I48.0 Paroxysmal atrial fibrillation; I89.0 Lymphedema, not elsewhere classified; I25.10 Atherosclerotic heart disease of native coronary artery without angina pectoris; K44.9 Diaphragmatic hernia without obstruction or gangrene; R79.89 Other specified abnormal findings of blood chemistry; R53.81 Other malaise; N18.9 Chronic kidney disease, unspecified; E83.42 Hypomagnesemia; B96.1 Klebsiella pneumoniae [K. pneumoniae] as the cause of diseases classified elsewhere; Z79.899 Other long term (current) drug therapy; Z98.890 Other specified postprocedural states; Z68.32 Body mass index [BMI] 32.0-32.9, adult; Z79.82 Long term (current) use of aspirin; Z79.51 Long term (current) use of inhaled steroids; D63.1 Anemia in chronic kidney disease
CPT/HCPCS: 36415; 36600; 71045; 71275; 74230; 80048; 80053; 80076; 80202; 81001; 82553; 82805; 83605; 83735; 83880; 84484; 85025; 87040; 87070; 87077; 87081; 87086; 87149; 87186; 87205; 90471; 90662; 93005; 94660; 96374; G0008; J0248; J0692; J0696; J1100; J1650; J1940; J2920; J3370; J3475; J3480; J3490; J7050; Q9967